=== PATIENT | female | born 1975 | race Caucasian/White ===

== ENCOUNTER 2021-01-11 07:02 | Outpatient (REF) | payer BC, SELFPAY ==
[2021-01-11 10:29] LABS: MANUAL DIFF FLAG NO
[2021-01-11 10:42] LABS: Basophils Percent Auto 0.6 % (0-2); Eosinophils Absolute Auto 0.2 X10*3/uL (0.0-0.4); Eosinophils Percent Auto 2.3 % (0-4); Hematocrit 41.1 % (37-47); Hemoglobin 13.9 g/dl (12.0-16.0); Imm Gran Abs Auto 0.01 X10*3/uL (0.00-0.03); Imm Gran Pct Auto 0.1 % (0.0-0.4); Lymphocytes Absolute Auto 1.9 X10*3/uL (1.2-4.9); Lymphocytes Percent Auto 26.4 % (20-40); Mean Corpuscular HGB Conc 33.8 g/dl (31.0-35.0); Mean Corpuscular Hemoglobin 32.6 pg (27.0-33.0); Mean Corpuscular Volume 96.3 fL (80-98); Monocytes Absolute Auto 0.5 X10*3/uL (0.1-1.2); Monocytes Percent Auto 7.5 % (2-11); Neutrophils Absolute Auto 4.5 X10*3/uL (2.0-8.3); Neutrophils Percent Auto 63.1 % (45-73); Platelet Count 307 X10*3/uL (160-400); Red Blood Count 4.27 X10*6/uL (4.20-5.50); Red Cell Distribution Width 11.5 % (11.0-16.0); White Blood Count 7.1 X10*3/uL (4.8-10.8)
[2021-01-11 11:06] LABS: Alanine Aminotransferase 9 U/L (0-31); Albumin Level 4.2 g/dL (3.5-5.0); Alkaline Phosphatase 58 U/L (39-117); Anion Gap 15 (12-20); Aspartate Amino Transferase 11 U/L (5-31); Bilirubin Total 0.8 mg/dL (0.0-1.0); Blood Urea Nitrogen 11 mg/dL (9-16); Calcium 9.1 mg/dL (8.4-10.2); Carbon Dioxide 22 mmol/L (22-29); Chloride 107 mmol/L (96-108); Cholesterol 200 mg/dL; Estimated Glomerular Filt Rate > 60; Glucose Fasting 92 mg/dL (60-99); HDL Cholesterol 46 mg/dL; LDL Cholesterol Calculated 131 mg/dl; Potassium 4.3 mmol/L (3.3-5.1); Sodium 140 mmol/L (135-145); Total Protein 7.1 g/dL (6.5-8.0); Triglycerides 118 mg/dL
[2021-01-11 11:27] LABS: TSH reflex Free T4 0.72 uIU/mL (0.32-4.0)
== END 2021-01-11 07:03 | disposition home or self-care (01) ==
LOC: HO.WFDLDS 07:02
PROVIDERS: PCP Internal Medicine; Visit Provider Internal Medicine
DX: Z00.00 Encounter for general adult medical examination without abnormal findings (principal)
CPT/HCPCS: 36415; 80053; 80061; 84443; 85025

== ENCOUNTER 2021-01-18 15:44 | Outpatient (REF) | payer BC, SELFPAY ==
--- NOTE | ~2021-01-18 | MM_ITS ---
EXAMINATION: MM SCREENING DIGITAL BREAST TOMOSYNTHESIS, BILATERAL CLINICAL INFORMATION: Screening. Asymptomatic. The lifetime risk of breast cancer based on the Tyrer-Cuzick Model is 11%. COMPARISON: Mammography: 01/26/2019 (baseline). TECHNIQUE: Digital breast tomosynthesis is performed in both the craniocaudal and mediolateral oblique views along with computer-aided detection (CAD). Synthesized 2D images are generated from the tomosynthesis. Additional left MLO view is provided. FINDINGS: There are scattered areas of fibroglandular density (ACR BI-RADS breast composition Category b). There are no significant masses, abnormal calcifications, or other abnormalities. Parenchymal pattern is similar to baseline exam. No significant changes. The axilla and skin contours are unremarkable. MM/MM tomosynthesis screening BI IMPRESSION: There are no significant changes from prior study. ASSESSMENT: BI-RADS 1: Negative RECOMMENDATION: Routine annual mammography screening. This patient's information was entered into a reminder system with a target due date for their next mammogram.
== END 2021-01-18 15:45 | disposition home or self-care (01) ==
LOC: HO.MAMMO 15:44
PROVIDERS: Visit Provider Internal Medicine
DX: Z12.31 Encounter for screening mammogram for malignant neoplasm of breast (principal)
CPT/HCPCS: 77063; 77067

== ENCOUNTER 2022-01-17 08:40 | Outpatient (REF) | payer BC, SELFPAY ==
[2022-01-23 01:06] LABS: HPV mRNA E6/E7 Not Detected (Not Detected)
== END 2022-01-17 08:41 | disposition home or self-care (01) ==
LOC: HO.LAB 08:40
PROVIDERS: Visit Provider Internal Medicine
DX: Z01.419 Encounter for gynecological examination (general) (routine) without abnormal findings (principal); Z11.51 Encounter for screening for human papillomavirus (HPV)
CPT/HCPCS: 87624; 88142

== ENCOUNTER 2022-01-17 08:47 | Outpatient (REF) | payer BC, SELFPAY ==
[2022-01-17 11:18] LABS: MANUAL DIFF FLAG NO
[2022-01-17 11:28] LABS: Basophils Percent Auto 0.5 % (0-2); Eosinophils Absolute Auto 0.1 X10*3/uL (0.0-0.4); Eosinophils Percent Auto 1.4 % (0-4); Hematocrit 42.9 % (37.0-47.0); Hemoglobin 14.4 g/dl (12.0-16.0); Imm Gran Abs Auto 0.03 X10*3/uL (0.00-0.03); Imm Gran Pct Auto 0.4 % (0.0-0.4); Lymphocytes Percent Auto 25.7 % (20-40); Mean Corpuscular HGB Conc 33.6 g/dl (31.0-35.0); Mean Corpuscular Hemoglobin 32.4 pg (27.0-33.0); Mean Corpuscular Volume 96.6 fL (80.0-98.0); Monocytes Absolute Auto 0.6 X10*3/uL (0.1-1.2); Monocytes Percent Auto 7.3 % (2-11); Neutrophils Absolute Auto 4.9 x10*3/uL (2.0-8.3); Neutrophils Percent Auto 64.7 % (45-73); Platelet Count 296 X10*3/uL (160-400); Red Blood Count 4.44 X10*6/uL (4.20-5.50); Red Cell Distribution Width 11.4 % (11.0-16.0); White Blood Count 7.6 X10*3/uL (4.8-10.8)
[2022-01-17 11:58] LABS: Alanine Aminotransferase 18 U/L (0-31); Albumin Level 4.7 g/dL (3.5-5.0); Alkaline Phosphatase 71 U/L (39-117); Anion Gap 12 (12-20); Aspartate Amino Transferase 19 U/L (5-31); Bilirubin Total 0.6 mg/dL (0.0-1.0); Blood Urea Nitrogen 9 mg/dL (9-16); Calcium 9.6 mg/dL (8.4-10.2); Carbon Dioxide 25 mmol/L (22-29); Chloride 106 mmol/L (96-108); Cholesterol 257 mg/dL; Estimated Glomerular Filt Rate > 60; Glucose Fasting 93 mg/dL (60-99); HDL Cholesterol 53 mg/dL; Iron 148 mcg/dL (30-160); LDL Cholesterol Calculated 182 mg/dl; Percent Iron Saturation 47 % (15-50); Potassium 4.2 mmol/L (3.3-5.1); Sodium 139 mmol/L (135-145); Total Iron Binding Capacity 314 mcg/dL (228-428); Total Protein 7.9 g/dL (6.5-8.0); Triglycerides 114 mg/dL; Unsaturated Iron Binding 166 ug/dL
[2022-01-17 12:06] LABS: TSH reflex Free T4 0.72 uIU/mL (0.32-4.0)
== END 2022-01-17 08:48 | disposition home or self-care (01) ==
LOC: HO.HMGCLDS 08:47
PROVIDERS: PCP Internal Medicine; Visit Provider Internal Medicine
DX: Z00.00 Encounter for general adult medical examination without abnormal findings (principal)
CPT/HCPCS: 36415; 80053; 80061; 83540; 84443; 85025

== ENCOUNTER 2022-01-23 08:34 | Outpatient (REF) | payer BC, SELFPAY ==
--- NOTE | ~2022-01-23 | MM_ITS ---
EXAMINATION: MM SCREENING DIGITAL BREAST TOMOSYNTHESIS, BILATERAL CLINICAL INFORMATION: Screening. Asymptomatic. The lifetime risk of breast cancer based on the Tyrer-Cuzick Model is 11.4%. COMPARISON: Mammography: January 18, 2021 and January 26, 2019 TECHNIQUE: Digital breast tomosynthesis is performed in both the craniocaudal and mediolateral oblique views along with computer-aided detection (CAD). Synthesized 2D images are generated from the tomosynthesis. FINDINGS: There are scattered areas of fibroglandular density (ACR BI-RADS breast composition Category b). There are no significant masses, abnormal calcifications, or other abnormalities. There is a small asymmetric density seen about the lateral aspect of the right breast but which appears been seen on study of January 26, 2019. MM/MM tomosynthesis screening BI IMPRESSION: There are no significant changes from prior study. ASSESSMENT: BI-RADS 1: Negative RECOMMENDATION: Routine annual mammography screening. This patient's information was entered into a reminder system with a target due date for their next mammogram.
== END 2022-01-23 08:35 | disposition home or self-care (01) ==
LOC: HO.MAMMO 08:34
PROVIDERS: Visit Provider Internal Medicine
DX: Z12.31 Encounter for screening mammogram for malignant neoplasm of breast (principal)
CPT/HCPCS: 77063; 77067

== ENCOUNTER 2022-05-30 07:19 | Outpatient (REF) | payer BC, SELFPAY ==
[2022-05-30 11:54] LABS: Cholesterol 195 mg/dL; HDL Cholesterol 51 mg/dL; LDL Cholesterol Calculated 130 mg/dl; Triglycerides 70 mg/dL
== END 2022-05-30 07:20 | disposition home or self-care (01) ==
LOC: HO.WFDLDS 07:19
PROVIDERS: Visit Provider Internal Medicine
DX: E78.5 Hyperlipidemia, unspecified (principal)
CPT/HCPCS: 36415; 80061

== ENCOUNTER 2023-01-17 07:38 | Outpatient (REF) | payer BC, SELFPAY ==
[2023-01-17 11:10] LABS: MANUAL DIFF FLAG NO
[2023-01-17 11:34] LABS: Basophils Absolute Auto 0.1 X10*3/uL (0.0-0.2); Basophils Percent Auto 0.8 % (0-2); Eosinophils Absolute Auto 0.1 X10*3/uL (0.0-0.4); Eosinophils Percent Auto 1.3 % (0-4); Hematocrit 41.6 % (37.0-47.0); Hemoglobin 13.7 g/dl (12.0-16.0); Imm Gran Abs Auto 0.02 X10*3/uL (0.00-0.03); Imm Gran Pct Auto 0.3 % (0.0-0.4); Lymphocytes Absolute Auto 1.9 X10*3/uL (1.2-4.9); Lymphocytes Percent Auto 30.5 % (20-40); Mean Corpuscular HGB Conc 32.9 g/dl (31.0-35.0); Mean Corpuscular Hemoglobin 32.3 pg (27.0-33.0); Mean Corpuscular Volume 98.1 fL (80.0-98.0); Mean Platelet Volume 9.9 fL (9.4-12.3); Monocytes Absolute Auto 0.5 X10*3/uL (0.1-1.2); Monocytes Percent Auto 7.6 % (2-11); Neutrophils Absolute Auto 3.6 x10*3/uL (2.0-8.3); Neutrophils Percent Auto 59.5 % (45-73); Platelet Count 305 X10*3/uL (160-400); Red Blood Count 4.24 X10*6/uL (4.20-5.50); Red Cell Distribution Width 11.3 % (11.0-16.0); White Blood Count 6.1 X10*3/uL (4.8-10.8)
[2023-01-17 12:19] LABS: Alanine Aminotransferase 20 U/L (0-31); Albumin Level 4.1 g/dL (3.5-5.0); Alkaline Phosphatase 52 U/L (39-117); Anion Gap 11 (12-20); Aspartate Amino Transferase 17 U/L (5-31); Bilirubin Total 0.6 mg/dL (0.0-1.0); Blood Urea Nitrogen 10 mg/dL (9-16); Calcium 9.3 mg/dL (8.4-10.2); Carbon Dioxide 25 mmol/L (22-29); Chloride 107 mmol/L (96-108); Cholesterol 227 mg/dL; Estimated Glomerular Filt Rate > 60; Glucose Fasting 92 mg/dL (60-99); HDL Cholesterol 54 mg/dL; LDL Cholesterol Calculated 151 mg/dl; Potassium 3.9 mmol/L (3.3-5.1); Sodium 139 mmol/L (135-145); TSH reflex Free T4 0.92 uIU/mL (0.32-4.0); Triglycerides 110 mg/dL
== END 2023-01-17 07:39 | disposition home or self-care (01) ==
LOC: HO.WFDLDS 07:38
PROVIDERS: Visit Provider Internal Medicine
DX: Z00.00 Encounter for general adult medical examination without abnormal findings (principal); E78.5 Hyperlipidemia, unspecified
CPT/HCPCS: 36415; 80053; 80061; 84443; 85025

== ENCOUNTER 2023-01-18 09:20 | Outpatient (REF) | payer BC, SELFPAY ==
[2023-01-18 13:27] LABS: Appearance Urine Clear; Color Urine Yellow; Glucose Urine UA Negative (Negative); Leukocyte Esterase Urine Negative (Negative); Nitrite Urine Negative (Negative); PH 7.5 (5.0-9.0); Specific Gravity - Urine 1.015 (1.005-1.025); Urine Blood Negative (Negative); Urine Ketones Negative (Negative); Urine Protein Negative (Neg-Trace)
[2023-01-18 13:31] LABS: Bacteria Urine None Seen (None Seen); Hyaline Casts Urine 0-2 /LPF (0-2); RBC Urine 0-2 /HPF (0-2); WBC Urine 0-5 /HPF (0-5)
== END 2023-01-18 09:21 | disposition home or self-care (01) ==
LOC: HO.HMGCLNP 09:20
PROVIDERS: PCP Internal Medicine; Visit Provider Internal Medicine
DX: Z00.00 Encounter for general adult medical examination without abnormal findings (principal); E78.5 Hyperlipidemia, unspecified
CPT/HCPCS: 81001

== ENCOUNTER 2023-01-18 10:24 | Outpatient (AMB) | payer BC, SELFPAY ==
[2023-01-18 10:40] VITALS: BP 114/70; PULSE 63; O2SAT 98; BMI 30.2
--- NOTE | 2023-01-18 10:40 | A.OFFPC_ITS ---
Vital Signs 01/18/23 10:40 Height 5 ft 2 in Weight 165 lb BMI 30.2 BP 114/70 Blood Pressure Location Lt brachial Position Sitting Pulse 63 Pulse Source Pulse Oximeter Pulse Oximetry (%) 98 Oxygen Delivery Method Room Air Intake Visit Reasons: PE Intake Note: Pt is here today for PE. Allergies No Known Allergies Allergy (Verified 01/18/23 10:42) Medication List - Last Reconciled 01/18/23 by Evelina Grant MD lorazepam 0.5 mg PO DAILY PRN trazodone 50 mg PO BEDTIME Tobacco use date assessed: 01/18/23 Dental Screening Dental Screen Date: 01/18/23 Did you have a dental visit in the last 12 months?: Yes Did you have a dental problem in the last 6 months where you did not have access to dental care?: No Was dental information given to patient?: Patient has dentist HPI PE HPI Details Pt presents for PE. Patient will have vaginal prolapse surgery in the fall. [facility], [facility] Medical History (Updated 01/18/23 @ 11:19 by Evelina Grant MD) Annual physical exam Insomnia Family History Father Hypertension Mother Hypertension Social History Housing: House Patient Tobacco Use Status: Never used Tobacco e-Cigarette/Vaping Use: Never Used Second Hand Smoke Exposure: No service: No Current occupational status: employed Cognitive needs: No Hearing needs: No Vision needs: Yes (contacts) Questionnaire Thrive Questionnaire Date Thrive assessed: 01/17/22 I am a: Patient What is your living situation today?: I have a steady place to live Within the past 12 months, did the food you bought not last and you didn't have the money to get more?: Never true Within the past 12 months, did you worry whether your food would run out before you got money to buy more?: Never true Please select the resources that you would like help with: None AUDIT C Alcohol Use Questionnaire (AUDIT-C) 1. How often do you have a drink containing alcohol?: 2-4 times a month 2. How many drinks containing alcohol do you have on a typical day when you are drinking?: 1 or 2 3. How often do you have six or more drinks on one occasion?: Never Total Score: 2 LORENZO-7 AMB Questionnaire LORENZO-7 Date LORENZO - 7 assessed: 01/17/22 Feeling nervous, anxious, or on edge: 1 = Several days Not being able to stop or control worryin = Not at all Worrying too much about different things: 1 = Several days Trouble relaxin = Not at all Being so restless that it is hard to sit still: 0 = Not at all Becoming easily annoyed or irritable: 0 = Not at all Feeling afraid as if something awful might happen: 0 = Not at all Total LORENZO-7 score (0-4 normal; 5-9 mild; 10-14 moderate; 15-21 severe): 2 Source: Developed by Drs. August Rodriguez, Marcia Vuong, Bebeto Ramos and colleagues, with an educational alex from [employer]. Review of Systems Const All systems reviewed & are unremarkable except as noted in HPI and below Reports no additional complaints Eyes Reports no additional complaints ENT Reports no additional complaints Card Reports no additional complaints Resp Reports no additional complaints GI Reports no additional complaints Reports no additional complaints Physical exam (Primary Care) Vital Signs: Last Vital Signs Pulse 63 01/18/23 10:40 BP 114/70 01/18/23 10:40 Pulse Ox 98 01/18/23 10:40 Oxygen Delivery Method Room Air 01/18/23 10:40 BMI result Body Mass Index 30.2 Tobacco/Smoking Status: Tobacco use Status Tobacco use date assessed 01/18/23 01/18/23 10:44 Patient Tobacco Use Status Never used Tobacco 01/18/23 10:44 e-Cigarette/Vaping Use Never Used 01/18/23 10:44 Thrive Assessment: Date of Thrive Assessment Date Thrive assessed 01/17/22 01/18/23 10:44 Const General: no acute distress HENMT Head: Yes normal to inspection Ears: hearing grossly normal bilaterally General nose exam: Normal external nose present Face and sinus: Yes normal facial exam Mouth: Normal oral and palatal mucosa present Throat: Yes posterior oropharynx normal Eyes General: appearance normal, both eyes and all related structures Neck Neck: Yes no lymphadenopathy and Yes supple Resp Effort & Inspection: normal respiratory effort Auscultation: clear to auscultation bilaterally Cardio Rhythm: regular rhythm Heart sounds: S1 normal heart sound present and S2 normal heart sound present GI Inspection: Yes normal to inspection Palpation (GI): Soft to palpation Percussion: Yes normal to percussion Auscultation: normal bowel sounds Assessment and Plan Assessment & Plan (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 in Apr Code(s): N81.9 - Female genital prolapse, unspecified (2) Hyperlipidemia: Code(s): E78.5 - Hyperlipidemia, unspecified Plan: Low-cholesterol diet discussed with the patient .she will have lipid profile checked in 8 months (3) Annual physical exam: Code(s): Z00.00 - Encounter for general adult medical examination without abnormal findings Plan: Well-balanced diet regular exercise discussed with the patient she is up-to-date with mammogram and will be referred for colonoscopy Orders: Orders Lipid Panel 8 Months E78.5 - Hyperlipidemia, unspecified Referrals Gastroenterology Referral Z00.00 - Encounter for general adult medical examination without abnormal findings Coding Level of Care Code Est Pt Prev Care 40-64y(25812) Diagnoses Vaginal vault prolapse N81.9 Hyperlipidemia E78.5 Annual physical exam Z00.00
== END 2023-01-18 11:33 | disposition home or self-care (01) ==
PROVIDERS: Visit Provider Internal Medicine
DX: N81.9 Female genital prolapse, unspecified (principal); E78.5 Hyperlipidemia, unspecified; Z00.00 Encounter for general adult medical examination without abnormal findings
CPT/HCPCS: 99396

== ENCOUNTER 2023-01-29 13:15 | Outpatient (REF) | payer BC, SELFPAY ==
--- NOTE | ~2023-01-29 | MM_ITS ---
EXAMINATION: MM SCREENING DIGITAL BREAST TOMOSYNTHESIS, BILATERAL CLINICAL INFORMATION: Screening. Asymptomatic. The lifetime risk of breast cancer based on the Tyrer-Cuzick Model is 11.2%. COMPARISON: Mammography: This study is compared with prior exams dating back to 2019. TECHNIQUE: Digital breast tomosynthesis is performed in both the craniocaudal and mediolateral oblique views along with computer-aided detection (CAD). Synthesized 2D images are generated from the tomosynthesis. FINDINGS: There are scattered areas of fibroglandular density (ACR BI-RADS breast composition Category b). There are no significant masses, abnormal calcifications, or other abnormalities. MM/MM tomosynthesis screening BI IMPRESSION: No mammographic evidence of malignancy. ASSESSMENT: BI-RADS BI-RADS 1 - Negative RECOMMENDATION: Routine annual mammography screening. 1 year F/U This examination should not preclude the clinical evaluation of a suspicious palpable abnormality. This patient's information was entered into a reminder system with a target due date for their next mammogram.
== END 2023-01-29 13:16 | disposition home or self-care (01) ==
LOC: HO.MAMMO 13:15
PROVIDERS: PCP Internal Medicine; Visit Provider Internal Medicine
DX: Z12.31 Encounter for screening mammogram for malignant neoplasm of breast (principal)
CPT/HCPCS: 77063; 77067

== ENCOUNTER → 2023-01-29 16:15 | Outpatient (BNV) | payer BC, SELFPAY | PROVIDERS: PCP Internal Medicine; Visit Provider Radiology Diagnostic Radiology | DX: Z12.31 Encounter for screening mammogram for malignant neoplasm of breast (principal) | CPT/HCPCS: 77063; 77067 ==

== ENCOUNTER 2023-02-19 08:39 | Outpatient (AMB) | payer BC, SELFPAY ==
--- NOTE | 2023-02-19 08:59 | MHC.OFFWIV ---
Intake Vital Signs 02/19/23 09:00 Height 5 ft 2 in Weight 168 lb BMI 30.7 BP 124/72 Blood Pressure Location Rt brachial Position Sitting Pulse 81 Pulse Source Pulse Oximeter Temp 98.1 F Temp Source Temporal Artery Scan Pulse Oximetry (%) 98 Oxygen Delivery Method Room Air Intake Visit Reasons: EP lower back and left side pain (lobby) Intake Note: Pt is here c/o lower back pain that radiates down her left side. Pt states right now it isn't extremely painful but it feels like a burning sensation. Patient Tobacco Use Status: Never used Tobacco Allergies No Known Allergies Allergy (Verified 02/19/23 09:02) Do you need a note to return to daycare/school/sports/work: No HPI EP lower back and left side pain (lobby) HPI Details 47-year-old female patient presents today with left-sided lower back pain with radiation posterior left leg. This started a week and ago. She denies any trauma inciting event. She reports that at the time pain started, she felt a shooting pain that extended down to her foot. Since then, pain has only radiated down to her posterior left knee. She has been using Aleve and. She has also been doing some home exercises for SI joint pain/ sciatica pain. No history of back trauma or surgery. Denies any leg weakness saddle anesthesia, or bowel/bladder dysfunction. [facility] Medical History Annual physical exam Insomnia Family History Father Hypertension Mother Hypertension Social History Housing: House Patient Tobacco Use Status: Never used Tobacco e-Cigarette/Vaping Use: Never Used Second Hand Smoke Exposure: No service: No Current occupational status: employed Cognitive needs: No Hearing needs: No Vision needs: Yes (contacts) Review of Systems Const All systems reviewed & are unremarkable except as noted in HPI and below Physical Exam Vital Signs: Last Vital Signs Temp 98.1 F 02/19/23 09:00 Pulse 81 02/19/23 09:00 BP 124/72 02/19/23 09:00 Pulse Ox 98 02/19/23 09:00 Oxygen Delivery Method Room Air 02/19/23 09:00 BMI result Body Mass Index 30.7 Const General: cooperative, healthy appearing, comfortable and no acute distress Resp Effort & Inspection: normal respiratory effort and able to speak in complete sentences Back/Spine/Pelvis Thoracic/Lumbar Spine: thoracic and lumbar spine normal to inspection, straight leg raise negative bilaterally, pain with thoraco-lumbar ROM (flexion/extension, mild pressure left lower back) and paraspinal muscle tenderness on the left in the lower lumbar Sacroiliac joints: on the left tender to palpation Skin General skin exam: no rashes or lesions noted Neuro General: gait normal, Normal light touch and pain sensation and deep tendon reflexes 2+ bilaterally Extrem General: Yes capillary refill normal and Yes no clubbing, cyanosis or edema Psych Appearance: grossly normal Mental Status: mental status grossly normal Speech and movement: Normal speech and movement present Assessment & Plan Assessment & Plan (1) Low back pain radiating to left lower extremity: Code(s): M54.50 - Low back pain, unspecified; M79.605 - Pain in left leg Plan: Patient presents with left-sided lower back pain with occasional burning radiation down left leg. This could either represent a left lumbar radiculopathy, perhaps L5/S1, verses left sacroiliac joint dysfunction, as she does have some tenderness to palpation over left SI joint. She has been doing some exercises at home, which I encouraged she continue to do if they are helpful. I will obtain an x-ray of her lumbar spine today. She is going to look into chiropractic treatment. We also discussed possibility of course of physical therapy, which she will request of her PCP if conservative measures do not help. I am going to trial her on a short course of Meloxicam to see if this provides her some benefit. We reviewed indications, use, possible side effects. She will return to the clinic or PCP as needed if pain does not improve of if it worsens. Orders: Orders XR lumbar spine 2-3V Today M54.50 - Low back pain, unspecified, M79.605 - Pain in left leg Medications: New meloxicam 7.5 mg PO DAILY 7 tabs 0RF 1 week M54.50 - Low back pain, unspecified, M79.605 - Pain in left leg Coding Level of Care Code Est Pt Level 3 (06034) Diagnoses Low back pain radiating to left lower extremity M54.50; M79.605
[2023-02-19 09:00] VITALS: BP 124/72; PULSE 81; TEMP 36.7; O2SAT 98; BMI 30.7
== END 2023-02-19 09:36 | disposition home or self-care (01) ==
PROVIDERS: PCP Internal Medicine; Visit Provider Nurse Practitioner Family
DX: M54.50 Low back pain, unspecified (principal); M79.605 Pain in left leg
CPT/HCPCS: 99213

== ENCOUNTER 2023-02-19 09:36 | Outpatient (REF) | payer BC, SELFPAY ==
--- NOTE | ~2023-02-19 | XR_ITS ---
EXAMINATION: XR LUMBOSACRAL SPINE CLINICAL INFORMATION: Low back pain COMPARISON: None available. TECHNIQUE: Three views of the lumbosacral spine. FINDINGS: No acute lumbar compression fracture. Disc spaces appear to be maintained. There is lower facet arthrosis. Sacrum grossly intact. Incidental note of mild degenerative changes at the SI joints. XR/XR lumbar spine 2-3V IMPRESSION: No acute compression fracture or loss of disc space. Lower facet arthrosis.
== END 2023-02-19 09:37 | disposition home or self-care (01) ==
LOC: HO.HMGCX 09:36
PROVIDERS: PCP Internal Medicine; Visit Provider Nurse Practitioner Family
DX: M54.50 Low back pain, unspecified (principal); M79.605 Pain in left leg
CPT/HCPCS: 72100

== ENCOUNTER 2023-04-03 15:13 | Outpatient (AMB) | payer BC, SELFPAY ==
--- NOTE | 2023-04-03 15:34 | MHC.OFFVIS ---
Intake Vital Signs 04/03/23 15:35 Height 5 ft 2 in Weight 163 lb BMI 29.8 BP 120/72 Blood Pressure Location Lt brachial Position Sitting Pulse 72 Intake Visit Reasons: colonoscopy screening Intake Note: Patient new consult for 1st pre Colonoscopy screening. Patient ;denies any GI issues. Rn Neurosurgical Required: No Accompanied by: Self / Same As Patient Allergies No Known Allergies Allergy (Verified 04/03/23 15:33) HPI colonoscopy screening HPI Details 47 year old? female here today for pre colonoscopy screening.? Patient was sent to us by her PCP.? This is her first colonoscopy screening.? Patient denies any gastrointestinal symptoms in the past or at present.? Denies any personal or family history of gastrointestinal disease, colon polyps, or cancer.? Denies history of difficulty with sedation or anesthesia in the past. However patient reports that when she was 13 she had tonsillectomy and right after the procedure patient vomited unsure if it was due to anesthesia or from actual surgery.? Negative for history of sleep apnea.? Denies any history of cardiac, renal, pulmonary, or hepatic disease.?? No history of infectious? diseases like hepatitis A, B, C, HIV or tuberculosis.? Patient is not on any anticoagulation therapy. [facility] Medical History Annual physical exam Insomnia Family History Father Hypertension Mother Hypertension Social History Housing: House Patient Tobacco Use Status: Never used Tobacco e-Cigarette/Vaping Use: Never Used Second Hand Smoke Exposure: No service: No Current occupational status: employed Cognitive needs: No Hearing needs: No Vision needs: Yes (contacts) Review of Systems Const Denies weight gain and Denies weight loss ENT Reports no additional complaints, Denies dysphagia and Denies odynophagia Card Reports no additional complaints Resp Reports no additional complaints GI Denies abdominal pain, Denies belching, Denies melena, Denies bloating, Denies change in bowel habits, Denies dysphagia, Denies excessive flatus, Denies dyspepsia, Denies heartburn, Denies diarrhea, Denies loose stools, Denies nausea, Denies odynophagia and Denies vomiting Musc Reports no additional complaints Neuro Reports no additional complaints Psych Reports no additional complaints Endo Reports no additional complaints Physical Exam Vital Signs: Last Vital Signs Pulse 72 04/03/23 15:35 BP 120/72 04/03/23 15:35 BMI result Body Mass Index 29.8 Const General: healthy appearing, no acute distress and well developed Nutritional Appearance: obese Orientation/consciousness: patient oriented x3 HEENT Head: Yes normal to inspection, Yes normocephalic and Yes atraumatic Face and sinus: Yes normal facial exam Mouth: Normal oral and palatal mucosa present Throat: Yes posterior oropharynx normal, Yes tonsils normal and Yes uvula midline Eyes General: appearance normal, both eyes and all related structures Neck Neck: Yes normal visual inspection, Yes full ROM and Yes trachea midline Thyroid: Thyroid normal Resp Effort & Inspection: normal respiratory effort, able to speak in complete sentences, no tracheal deviation and symmetric chest movement Auscultation: clear to auscultation bilaterally Cardio Rate: regular rate Heart sounds: S1 normal heart sound present and S2 normal heart sound present GI Inspection: Yes normal to inspection, No distended and Yes obesity Palpation (GI): Soft to palpation, not firm, nontender and No hepatosplenomegaly present Auscultation: normal bowel sounds General: Yes no CVA tenderness Back/Spine/Pelvis Back: no CVA tenderness Skin General skin exam: elasticity normal, turgor normal and dry skin Neuro General: patient oriented x3 Psych Appearance: grossly normal Mental Status: mental status grossly normal Speech and movement: Normal speech and movement present Assessment & Plan Assessment & Plan (1) Screen for colon cancer: Code(s): Z12.11 - Encounter for screening for malignant neoplasm of colon Plan: Patient denies any GI, cardiac or respiratory symptoms.?? Denies any history of sleep apnea.? No history infectious diseases in the past or present.? Not on any anticoagulation therapy.? No family or personal history of colon cancer or polyps.? Patient denies melena, hematochezia, unintentional weight loss or ribbon like stools.? Discussed at length the pre-procedure,? prep, diet & medications as well as what to expect prior, during and after the procedure.?? Stressed the importance of good bowel prep. ?Recommended the use of Vaseline or Calmoseptine OTC & baby wipes with bowel movements to promote comfort.? ?Patient verbalizes understanding and agrees to plan of care.? She was given the opportunity to ask questions and all questions answered.? We will see her after the procedure.? Medications: New bisacodyl (Dulcolax (bisacodyl)) Start taking 2 tablet every night 7 days before the procedure and 1 day before procedure take 2 tablets at noon time followed by MiraLax prep 10 mg (2 x 5 mg) PO BEDTIME 14 tabs 0RF Z12.11 - Encounter for screening for malignant neoplasm of colon polyethylene glycol 3350 (Miralax) As directed by gastroenterology department at [facility] [place] 238 grams PO ONCE 238 grams 0RF Z12.11 - Encounter for screening for malignant neoplasm of colon Coding Level of Care Code New Pt Level 3 (62987) Diagnoses Screen for colon cancer Z12.11 Time Spent (min) 40 Comment 30 minutes spent with patient and additional 10 minutes spent reviewing her records
[2023-04-03 15:35] VITALS: BP 120/72; PULSE 72; BMI 29.8
== END 2023-04-03 16:08 | disposition home or self-care (01) ==
PROVIDERS: PCP Internal Medicine; Visit Provider Nurse Practitioner Family
DX: Z01.818 Encounter for other preprocedural examination (principal); Z12.11 Encounter for screening for malignant neoplasm of colon
CPT/HCPCS: S0285

== ENCOUNTER → 2023-04-03 15:13 | Outpatient (BNVA) | payer BC, SELFPAY | PROVIDERS: PCP Internal Medicine; Visit Provider Nurse Practitioner Family ==

== ENCOUNTER 2024-01-15 07:13 | Day surgery (SDC) | payer BC, SELFPAY ==
--- NOTE | 2024-01-13 13:52 | HO.ANESPROP2 ---
Documented by User: Celina Santiago NP 01/13/24 13:52 HPI - Anesthesia Eval Consult details Narrative: 48yo F for Colonoscopy FORMERLY [facility], [facility] Active Problems Active Problems: All Active Problems Bilateral otitis media with effusion (Acute) Hyperlipidemia (Acute) Vaginal vault prolapse (Acute) Plantar fasciitis, left (Acute) Annual physical exam (Acute) Hordeolum (Acute) Past Medical History Medical History Insomnia Annual physical exam Family History Family History Father Hypertension Mother Hypertension Surgical History Surgical History (Updated 01/15/24 @ 07:37 by Shannan Garnett RN) H/O: hysterectomy Social History Social History Housing: House Patient Tobacco Use Status: Never used Tobacco e-Cigarette/Vaping Use: Never Used Second Hand Smoke Exposure: No Advance Directives: No Advance Directives Information Provided: Yes service: No Current occupational status: employed Cognitive needs: No Hearing needs: No Vision needs: Yes (contacts) Meds Allergies Allergy/AdvReac Type Severity Reaction Status Date / Time No Known Allergies Allergy Verified 04/03/23 15:33 Assessment and Plan Assessment Anesthesia Assessment: Chart Reviewed Documented by User: Eleuterio Lerner MD 01/15/24 07:38 FORMERLY [facility], [facility] Past Medical History Medical History Insomnia Annual physical exam Family History Family History Father Hypertension Mother Hypertension Family history of problems with anesthesia: No Surgical History Surgical History (Updated 01/15/24 @ 07:37 by Shannan Garnett RN) H/O: hysterectomy History of Problems with Anesthesia: No Social History Social History Housing: House Patient Tobacco Use Status: Never used Tobacco e-Cigarette/Vaping Use: Never Used Second Hand Smoke Exposure: No Advance Directives: No Advance Directives Information Provided: Yes service: No Current occupational status: employed Cognitive needs: No Hearing needs: No Vision needs: Yes (contacts) Meds Allergies Allergy/AdvReac Type Severity Reaction Status Date / Time No Known Allergies Allergy Verified 04/03/23 15:33 Exam Airway Mallampati Class: II TM Dist: >3cm Neck ROM: Full Other: lower retainer Assessment and Plan Assessment Anesthesia Assessment: Anesthesia Plan Discussed Final Anesthetic Review Family History of Problems with Anesthesia: No History of Problems with Anesthesia: No NPO: Yes ASA Class: II Final Preanesthetic Review: No Changes in Pt Med Stat, Meds/Allgs Chart Reviewed, Consent Obtained/Reviewed and Anes Risks/Benef Reviewed Patient Risk: Low Procedure Risk: Low Anesthetic Plan Anesthetic Plan: TIVA Disposition: Standard PACU
--- NOTE | 2024-01-15 07:07 | MHC.SHP ---
Pre-Procedural Eval Section A - 24 Hr Update-Section A only Date of Service: 01/15/24 Section B - Complete if H&P > 30 days Chief Complaint: Encounter for screening for malignant neoplasm of Relevant Family History (Specify if Yes): No Relevant Social History: None Present Medications: see Short Stay Collaborative assessment Medical History: Significant History (hyperlipidemia ) History of Previous Operations: Relevant previous surgery/procedure and date(s) (H/O: hysterectomy) Allergies: Allergies Allergy/AdvReac Type Severity Reaction Status Date / Time No Known Allergies Allergy Verified 04/03/23 15:33 Review of Systems Sugical H&P ROS: Negative: Constitution, Cardiovascular, Respiratory, Neurological, Psychiatric, Hem-Onc, Allergic/Immunologic, Gastrointestinal, Genitourinary, Musculoskeletal, Integumentary, Endocrine and Eyes/Ears/Nose/Throat Exam Surgical H&P Exam: Normal: HEENT, Normal: Heart, Normal: Lungs, Normal: Extremities, Normal: Abdomen, Normal: Skin and Normal: Neurological Plan Diagnosis/Plan: Unchanged I have reviewed the history and physical and performed a pertinent physical examination on my patient. No changes have occurred unless specified. Time Spent With Patient Time: Total time managing care of this patient today ____ minutes.
[2024-01-15 07:45] VITALS: BMI 27.9
[2024-01-15 07:49] VITALS: BP 107/81; PULSE 76; RESP 16; TEMP 37.5; O2SAT 97
[2024-01-15] MEDS: Lactated Ringers 1,000 ML 100 ML IVCONT (08:03)
--- NOTE | 2024-01-15 08:21 | P.OPN-COLO_ITS ---
Colonoscopy Operative Note Operative Note Date of Service: 01/15/24 Narrative: Operative Information Procedure Description: Colonoscopy Indication: screening Anesthesia: MAC COLONOSCOPY Instrument: Olympus variable stiffness pediatric scope 190L Colonoscopy Monitoring: Vital signs and clinical assessment, continuous EKG monitoring, Pulse oximetry, Carbon Dioxide monitoring and blood pressure monitoring were done throughout the procedure. Colon withdrawal time was 9 minutes. Procedure: The patient was placed in the left lateral decubitis position and pre-procedure medications were administered. After a digital rectal examination of the ano-rectum, the video colonoscope was inserted into the rectum and advanced through the colon to the cecum/TI. The colonoscope was slowly withdrawn in a retrograde panoramic fashion and the colon mucosa was carefully examined including a retroflexed view of the rectum. Findings and interventions are described below. Procedure Difficulty: easy Findings: Terminal Ileum-normal Cecum:normal Right sided retroflexion- normal Ascending Colon: normal Transverse Colon -normal Descending Colon:normal Sigmoid Colon: mild diverticulosis Rectum: Retroflexion with small internal hemorrhoids seen, grade I, 10 mm sessile polyp removed with cold snare, some residual tissue remained and removed with cold forceps Anorectum - normal Intervention: cold snare and cold forceps Colon preparation: [place] Bowel Preparation Scale Right colon; 2 Transverse colon: 3 Left colon; 3 (0 = Unprepared colon segment with mucosa not seen due to solid stool that cannot be cleared. 1 = Portion of mucosa of the colon segment seen, but other areas of the colon segment not well seen due to staining, residual stool and/or opaque liquid. 2 = Minor amount of residual staining, small fragments of stool and/or opaque liquid, but mucosa of colon segment seen well. 3 = Entire mucosa of colon segment seen well with no residual staining, small fragments of stool or opaque liquid) Impression and Post Procedure Diagnosis: diverticulosis colon polyp internal hemorrhoids Plan: High fiber diet leaflet Avoid straining at stool, epsom salts and sitz bath, anusol supps or cream Repeat Colonoscopy in 5-6 years or earlier if clinically indicated Above findings were reviewed with the patient and relevant handouts were provided if indicated.
[2024-01-15 08:50] VITALS: BP 89/49; PULSE 73; RESP 16; TEMP 36.1; O2SAT 97
[2024-01-15 09:05] VITALS: BP 101/59; PULSE 65; RESP 16; O2SAT 99
[2024-01-15 09:13] VITALS: BP 106/65; PULSE 64; RESP 16; TEMP 36.2; O2SAT 98
== END 2024-01-15 09:36 | disposition home or self-care (01) ==
PROVIDERS: PCP Internal Medicine; Visit Provider Internal Medicine Gastroenterology
PROC: 0DJD8ZZ Inspection of Lower Intestinal Tract, Via Natural or Artificial Opening Endoscopic (ICD-10-PCS; CPT 45378; principal; 2024-01-15 08:30)
DX: Z12.11 Encounter for screening for malignant neoplasm of colon (principal); D12.8 Benign neoplasm of rectum; K57.30 Diverticulosis of large intestine without perforation or abscess without bleeding; K64.0 First degree hemorrhoids; E78.5 Hyperlipidemia, unspecified
CPT/HCPCS: 45385; 45380; 88305; J2704

== ENCOUNTER → 2024-01-15 07:13 | Outpatient (BNV) | payer BC, SELFPAY | PROVIDERS: PCP Internal Medicine; Visit Provider Internal Medicine Gastroenterology | DX: Z12.11 Encounter for screening for malignant neoplasm of colon (principal); D12.8 Benign neoplasm of rectum; K57.30 Diverticulosis of large intestine without perforation or abscess without bleeding; K64.0 First degree hemorrhoids | CPT/HCPCS: 45385 ==

== ENCOUNTER 2024-01-17 07:46 | Outpatient (REF) | payer BC, SELFPAY ==
[2024-01-17 11:32] LABS: MANUAL DIFF FLAG NO
[2024-01-17 11:37] LABS: Basophils Absolute Auto 0.1 X10*3/uL (0.0-0.2); Basophils Percent Auto 0.9 % (0-2); Eosinophils Absolute Auto 0.1 X10*3/uL (0.0-0.4); Eosinophils Percent Auto 1.4 % (0-4); Hematocrit 38.6 % (37.0-47.0); Hemoglobin 13.3 g/dl (12.0-16.0); Imm Gran Abs Auto 0.02 X10*3/uL (0.00-0.03); Imm Gran Pct Auto 0.3 % (0.0-0.4); Lymphocytes Absolute Auto 2.2 X10*3/uL (1.2-4.9); Lymphocytes Percent Auto 33.9 % (20-40); Mean Corpuscular HGB Conc 34.5 g/dl (31.0-35.0); Mean Corpuscular Hemoglobin 32.8 pg (27.0-33.0); Mean Corpuscular Volume 95.3 fL (80.0-98.0); Mean Platelet Volume 9.8 fL (9.4-12.3); Monocytes Absolute Auto 0.5 X10*3/uL (0.1-1.2); Monocytes Percent Auto 7.2 % (2-11); Neutrophils Absolute Auto 3.6 x10*3/uL (2.0-8.3); Neutrophils Percent Auto 56.3 % (45-73); Platelet Count 289 X10*3/uL (160-400); Red Blood Count 4.05 X10*6/uL (4.20-5.50); Red Cell Distribution Width 11.7 % (11.0-16.0); White Blood Count 6.4 X10*3/uL (4.8-10.8)
[2024-01-17 12:34] LABS: Alanine Aminotransferase 9 U/L (0-31); Albumin Level 4.1 g/dL (3.5-5.0); Alkaline Phosphatase 50 U/L (39-117); Anion Gap 10 (12-20); Aspartate Amino Transferase 13 U/L (5-31); Bilirubin Total 0.7 mg/dL (0.0-1.0); Blood Urea Nitrogen 6 mg/dL (9-16); Carbon Dioxide 26 mmol/L (22-29); Chloride 106 mmol/L (96-108); Cholesterol 208 mg/dL (<200); Estimated Glomerular Filt Rate > 60; Glucose Fasting 86 mg/dL (60-99); HDL Cholesterol 46 mg/dL (>40); LDL Cholesterol Calculated 146 mg/dL (<100); Potassium 3.7 mmol/L (3.3-5.1); Sodium 138 mmol/L (135-145); Total Protein 6.9 g/dL (6.5-8.0); Triglycerides 82 mg/dL (<150)
[2024-01-17 12:39] LABS: TSH reflex Free T4 0.59 uIU/mL (0.32-4.0); Vitamin D 25-OH Total 43.8 ng/mL (>30)
== END 2024-01-17 07:47 | disposition home or self-care (01) ==
LOC: HO.WFDLDS 07:46
PROVIDERS: Visit Provider Internal Medicine
DX: Z00.00 Encounter for general adult medical examination without abnormal findings (principal); E78.5 Hyperlipidemia, unspecified
CPT/HCPCS: 36415; 80053; 80061; 82306; 84443; 85025

== ENCOUNTER 2024-01-22 08:03 | Outpatient (AMB) | payer BC, SELFPAY ==
--- NOTE | 2024-01-22 08:11 | A.OFFPC_ITS ---
Vital Signs 01/22/24 08:12 Height 5 ft 2.5 in Weight 156 lb BMI 28.1 BP 118/78 Blood Pressure Location Rt brachial Position Sitting Pulse 70 Pulse Source Pulse Oximeter Pulse Oximetry (%) 98 Oxygen Delivery Method Room Air Intake Visit Reasons: Annual PE Intake Note: Pt is here today for PE. Allergies No Known Allergies Allergy (Verified 01/22/24 08:13) Medication List - Last Reconciled 01/22/24 by Evelina Grant MD trazodone 50 mg PO BEDTIME Tobacco use date assessed: 01/22/24 Dental Screening Dental Screen Date: 01/22/24 Did you have a dental visit in the last 12 months?: Yes Did you have a dental problem in the last 6 months where you did not have access to dental care?: No Was dental information given to patient?: Patient has dentist HPI Annual PE HPI Details Pt present for PE. PFSH Medical History (Updated 01/22/24 @ 08:37 by Evelina Grant MD) Insomnia Annual physical exam Surgical History (Updated 01/22/24 @ 08:49 by Evelina Grant MD) History of tonsillectomy and adenoidectomy H/O: hysterectomy Family History Father Hypertension Mother Hypertension Social History Housing: House Patient Tobacco Use Status: Never used Tobacco e-Cigarette/Vaping Use: Never Used Second Hand Smoke Exposure: No service: No Current occupational status: employed Cognitive needs: No Hearing needs: No Vision needs: Yes (contacts) Questionnaire PHQ-9 Over the last 2 weeks, how often have you been bothered by any of the following problems? 1. Little interest or pleasure in doing things: not at all 2. Feeling down, depressed, or hopeless: not at all 3. Trouble falling or staying asleep, or sleeping too much: not at all 4. Feeling tired or having little energy: not at all 5. Poor appetite or overeating: not at all 6. Feeling bad about yourself - or that you are a failure or have let yourself or your family down: not at all 7. Trouble concentrating on things, such as reading the newspaper or watching television: not at all 8. Moving or speaking so slowly that other people could have noticed. Or the opposite - being so fidgety or restless that you have been moving around a lot more than usual: not at all 9. Thoughts that you would be better off or of hurting yourself in some way: not at all Total score: 0 Depression Screening Interpretation: Negative Depression Screening Done: Yes Source: Developed by Drs. August Rodriguez, Marcia Vuong, Bebeto Ramos and colleagues, with an educational alex from [employer] ([employer] Thrive Questionnaire Date Thrive assessed: 01/22/24 I am a: Patient What is your living situation today?: I have a steady place to live Within the past 12 months, did the food you bought not last and you didn't have the money to get more?: Never true Within the past 12 months, did you worry whether your food would run out before you got money to buy more?: Never true Do you have trouble paying for medicines?: No Do you have trouble getting transportation to medical appointments?: No Do you have trouble paying your heating and electricity bill?: No Do you have trouble taking care of your child, family member or friend?: No Do you have trouble with day-to-day activities such as bathing, preparing meals, shopping, managing finances, etc.?: No Are you currently unemployed and looking for a job?: No Are you interested in more education?: No Please select the resources that you would like help with: Housing/Assisted Currently or been in a relationship where the following occur: No concerns reported THRIVE Score: 0 AUDIT C Alcohol Use Questionnaire (AUDIT-C) 1. How often do you have a drink containing alcohol?: Monthly or less 2. How many drinks containing alcohol do you have on a typical day when you are drinking?: 1 or 2 3. How often do you have six or more drinks on one occasion?: Never Total Score: 1 LORENZO-7 AMB Questionnaire LORENZO-7 Date LORENZO - 7 assessed: 01/22/24 Feeling nervous, anxious, or on edge: 0 = Not at all Not being able to stop or control worryin = Not at all Worrying too much about different things: 0 = Not at all Trouble relaxin = Not at all Being so restless that it is hard to sit still: 0 = Not at all Becoming easily annoyed or irritable: 0 = Not at all Feeling afraid as if something awful might happen: 0 = Not at all Total LORENZO-7 score (0-4 normal; 5-9 mild; 10-14 moderate; 15-21 severe): 0 Source: Developed by Drs. August Rodriguez, Marcia Vuong, Bebeto Ramos and colleagues, with an educational alex from [employer] ([employer]). Review of Systems Const All systems reviewed & are unremarkable except as noted in HPI and below Reports no additional complaints Eyes Reports no additional complaints ENT Reports no additional complaints Card Reports no additional complaints Resp Reports no additional complaints GI Reports no additional complaints Reports no additional complaints Physical exam (Primary Care) Vital Signs: Last Vital Signs Pulse 70 01/22/24 08:12 BP 118/78 01/22/24 08:12 Pulse Ox 98 01/22/24 08:12 Oxygen Delivery Method Room Air 01/22/24 08:12 BMI result Body Mass Index 28.1 Tobacco/Smoking Status: Tobacco use Status Tobacco use date assessed 01/22/24 01/22/24 08:15 Patient Tobacco Use Status Never used Tobacco 01/22/24 08:11 e-Cigarette/Vaping Use Never Used 01/22/24 08:11 PHQ-9: PHQ-9 Score PHQ-9: Total score 0 01/22/24 08:15 Depression Screening Interpretation: Negative Thrive Assessment: Date of Thrive Assessment Date Thrive assessed 01/22/24 01/22/24 08:15 Currently or been in a relationship where the following occur: No concerns reported Const General: no acute distress HENMT Head: Yes normal to inspection Ears: hearing grossly normal bilaterally Face and sinus: Yes normal facial exam Mouth: Normal oral and palatal mucosa present Throat: Yes posterior oropharynx normal Eyes General: appearance normal, both eyes and all related structures Neck Neck: Yes supple Resp Effort & Inspection: normal respiratory effort Auscultation: clear to auscultation bilaterally Cardio Rhythm: regular rhythm Heart sounds: S1 normal heart sound present and S2 normal heart sound present GI Inspection: Yes normal to inspection Palpation (GI): Soft to palpation Percussion: Yes normal to percussion Auscultation: normal bowel sounds Assessment and Plan Assessment & Plan (1) Hyperlipidemia: Code(s): E78.5 - Hyperlipidemia, unspecified Plan: Low-cholesterol diet regular physical activity discussed with the patient. 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 she is up-to-date with mammogram colonoscopy. (4) Hx of colonoscopy: Comment: 01/2024 1cm polyp TA, recheck 5yrs Code(s): Z98.890 - Other specified postprocedural states Orders: Orders Comprehensive [place]. Panel Fast 1 Year E78.5 - Hyperlipidemia, unspecified, Z00.00 - Encounter for general adult medical examination without abnormal findings Complete Blood Count Auto Diff 1 Year E78.5 - Hyperlipidemia, unspecified, Z00.00 - Encounter for general adult medical examination without abnormal findings Lipid Panel 1 Year E78.5 - Hyperlipidemia, unspecified, Z00.00 - Encounter for general adult medical examination without abnormal findings TSH reflex Free T4 1 Year E78.5 - Hyperlipidemia, unspecified, Z00.00 - Encounter for general adult medical examination without abnormal findings Vitamin D 25-OH Total 1 Year E78.5 - Hyperlipidemia, unspecified, Z00.00 - Encounter for general adult medical examination without abnormal findings UA w Microscopic 1 Year E78.5 - Hyperlipidemia, unspecified, Z00.00 - Encounter for general adult medical examination without abnormal findings Coding Level of Care Code Est Pt Prev Care 40-64y(38104) Diagnoses Hyperlipidemia E78.5 Vaginal vault prolapse N81.9 Annual physical exam Z00.00 Hx of colonoscopy Z98.890
[2024-01-22 08:12] VITALS: BP 118/78; PULSE 70; O2SAT 98; BMI 28.1
== END 2024-01-22 08:33 | disposition home or self-care (01) ==
PROVIDERS: PCP Internal Medicine; Visit Provider Internal Medicine
DX: E78.5 Hyperlipidemia, unspecified (principal); N81.9 Female genital prolapse, unspecified; Z00.00 Encounter for general adult medical examination without abnormal findings; Z98.890 Other specified postprocedural states
CPT/HCPCS: 99396

== ENCOUNTER 2024-01-29 08:06 | Outpatient (AMB) | payer BC, SELFPAY ==
--- NOTE | 2024-01-29 08:10 | MHC.OFFVIS ---
Vital Signs 01/29/24 08:14 Height 5 ft 2.5 in Weight 155 lb 10.342 oz BMI 28.0 BP 112/64 Blood Pressure Location Lt brachial Position Sitting Pulse 62 Pulse Source Pulse Oximeter Pulse Oximetry (%) 98 Oxygen Delivery Method Room Air Intake Visit Reasons: S/P [place] screening; Dr. Casper Intake Note: Xochilt presents in office today for a scheduled post op FUV. CC; Pt reports that they have remained stable in the post op phase and deny any new sx or concerns. Phlebotomy Support Tech Required: No Allergies No Known Allergies Allergy (Verified 01/29/24 08:11) HPI HPI S/P [place] screening; Dr. Casper: Details: LAST VISIT Screen for colon cancer Patient denies any GI, cardiac or respiratory symptoms.?? Denies any history of sleep apnea.? No history infectious diseases in the past or present.? Not on any anticoagulation therapy.? No family or personal history of colon cancer or polyps.? Patient denies melena, hematochezia, unintentional weight loss or ribbon like stools.? Discussed at length the pre-procedure,? prep, diet & medications as well as what to expect prior, during and after the procedure.?? Stressed the importance of good bowel prep. ?Recommended the use of Vaseline or Calmoseptine OTC & baby wipes with bowel movements to promote comfort.? ?Patient verbalizes understanding and agrees to plan of care.? She was given the opportunity to ask questions and all questions answered.? We will see her after the procedure.? Plan Medications New bisacodyl (Dulcolax (bisacodyl)) Start taking 2 tablet every night 7 days before the procedure and 1 day before procedure take 2 tablets at noon time followed by MiraLax prep 10 mg (2 x 5 mg) PO BEDTIME 14 tabs 0RF Z12.11 polyethylene glycol 3350 (Miralax) As directed by gastroenterology department at [facility] 238 grams PO ONCE 238 grams 0RF Z12.11 COLONOSCOPY Findings: Terminal Ileum-normal Cecum:normal Right sided retroflexion- normal Ascending Colon: normal Transverse Colon -normal Descending Colon:normal Sigmoid Colon: mild diverticulosis Rectum: Retroflexion with small internal hemorrhoids seen, grade I, 10 mm sessile polyp removed with cold snare, some residual tissue remained and removed with cold forceps Anorectum - normal Intervention: cold snare and cold forceps Colon preparation: [place] Bowel Preparation Scale Right colon; 2 Transverse colon: 3 Left colon; 3 (0 = Unprepared colon segment with mucosa not seen due to solid stool that cannot be cleared. 1 = Portion of mucosa of the colon segment seen, but other areas of the colon segment not well seen due to staining, residual stool and/or opaque liquid. 2 = Minor amount of residual staining, small fragments of stool and/or opaque liquid, but mucosa of colon segment seen well. 3 = Entire mucosa of colon segment seen well with no residual staining, small fragments of stool or opaque liquid) Impression and Post Procedure Diagnosis: diverticulosis colon polyp internal hemorrhoids Plan: High fiber diet leaflet Avoid straining at stool, epsom salts and sitz bath, anusol supps or cream Repeat Colonoscopy in 5-6 years or earlier if clinically indicated PATHOLOGY RESULTS Diagnosis Colon, rectal polyp: Tubular adenoma; negative for high-grade dysplasia and carcinoma TODAY'S VISIT Patient is here today for follow-up and to discuss colonoscopy results. Patient denies any ill effects from the prep, anesthesia or procedure itself. Patient reports to be feeling well. Denies any GI concerning symptoms. Colonoscopy revealed 1 rectal polyp showing tubular adenoma without high-grade dysplasia or carcinoma. Diverticulosis seen in sigmoid colon. Patient denies any melena, hematochezia. Denies any upper GI symptoms like acid reflux, dyspepsia, dysphagia or odynophagia. Patient reports to be feeling well. Colonoscopy in 5 years, sooner if clinically necessary. [facility] Medical History (Updated 02/05/24 @ 20:53 [facility] Diverticulosis Tubular adenoma Insomnia Annual physical exam Surgical History History of tonsillectomy and adenoidectomy H/O: hysterectomy Family History Father Hypertension Mother Hypertension Social History Housing: House Patient Tobacco Use Status: Never used Tobacco e-Cigarette/Vaping Use: Never Used Second Hand Smoke Exposure: No service: No Current occupational status: employed Cognitive needs: No Hearing needs: No Vision needs: Yes (contacts) Review of Systems Const Denies weight gain and Denies weight loss ENT Reports no additional complaints, Denies dysphagia and Denies odynophagia Card Reports no additional complaints Resp Reports no additional complaints GI Denies abdominal pain, Denies belching, Denies melena, Denies bloating, Denies change in bowel habits, Denies dysphagia, Denies excessive flatus, Denies dyspepsia, Denies heartburn, Denies diarrhea, Denies loose stools, Denies nausea, Denies odynophagia and Denies vomiting Musc Reports no additional complaints Neuro Reports no additional complaints Psych Reports no additional complaints Endo Reports no additional complaints Physical Exam Vital Signs: Last Vital Signs Pulse 62 01/29/24 08:14 BP 112/64 01/29/24 08:14 Pulse Ox 98 01/29/24 08:14 Oxygen Delivery Method Room Air 01/29/24 08:14 BMI result Body Mass Index 28.0 Const General: healthy appearing, no acute distress and well developed Nutritional Appearance: obese Orientation/consciousness: patient oriented x3 Resp Effort & Inspection: normal respiratory effort, able to speak in complete sentences, no tracheal deviation and symmetric chest movement Auscultation: clear to auscultation bilaterally Cardio Rate: regular rate GI Inspection: Yes normal to inspection, No distended and Yes obesity Palpation (GI): Soft to palpation, not firm, nontender and No hepatosplenomegaly present Auscultation: normal bowel sounds General: Yes no CVA tenderness Back/Spine/Pelvis Back: no CVA tenderness Skin General skin exam: elasticity normal, turgor normal and dry skin Neuro General: patient oriented x3 Psych Appearance: grossly normal Mental Status: mental status grossly normal Assessment & Plan Assessment & Plan (1) Tubular adenoma: Code(s): D36.9 - Benign neoplasm, unspecified site Category: Medical (2) Diverticulosis: Code(s): K57.90 - Diverticulosis of intestine, part unspecified, without perforation or abscess without bleeding Category: Medical (3) Status post colonoscopy: Code(s): Z98.890 - Other specified postprocedural states Plan Colonoscopy in 5 years, sooner if clinically necessary. Patient had 1 tubular adenoma found in rectum without high-grade dysplasia or carcinoma. Diverticulosis found in sigmoid colon. Patient will increase fiber intake. Patient may also take [id number] fiber supplements and probiotics. Patient will follow-up in the office on as needed basis. She is agreeable to this plan and verbalizes understanding of instructions. She was given the opportunity to ask questions and all questions answered. Thank you for allowing me to participate in her care Coding Level of Care Code Est Pt Level 3 (16735) Diagnoses Tubular adenoma D36.9 Diverticulosis K57.90 Status post colonoscopy Z98.890 Time Spent (min) 25 Comment 20 minutes spent with patient and additional 15 minutes spent reviewing her records
[2024-01-29 08:14] VITALS: BP 112/64; PULSE 62; O2SAT 98; BMI 28.0
== END 2024-01-29 09:01 | disposition home or self-care (01) ==
PROVIDERS: PCP Internal Medicine; Visit Provider Nurse Practitioner Family
DX: D36.9 Benign neoplasm, unspecified site (principal); K57.90 Diverticulosis of intestine, part unspecified, without perforation or abscess without bleeding; Z98.890 Other specified postprocedural states
CPT/HCPCS: 99213

== ENCOUNTER → 2024-01-29 08:06 | Outpatient (BNVA) | payer BC, SELFPAY | PROVIDERS: PCP Internal Medicine; Visit Provider Nurse Practitioner Family ==

== ENCOUNTER 2024-01-31 07:52 | Outpatient (REF) | payer BC, SELFPAY | END 2024-01-31 07:53 | disposition home or self-care (01) | LOC: HO.MAMMO 07:52 | PROVIDERS: PCP Internal Medicine; Visit Provider Internal Medicine | DX: Z12.31 Encounter for screening mammogram for malignant neoplasm of breast (principal) | CPT/HCPCS: 77063; 77067 ==

== ENCOUNTER → 2024-01-31 08:00 | Outpatient (BNV) | payer BC, SELFPAY | PROVIDERS: PCP Internal Medicine; Visit Provider Radiology Diagnostic Radiology | DX: Z12.31 Encounter for screening mammogram for malignant neoplasm of breast (principal) | CPT/HCPCS: 77063; 77067 ==

== ENCOUNTER 2024-02-24 13:31 | Outpatient (AMB) | payer BC, SELFPAY ==
[2024-02-24 13:54] VITALS: BP 128/80; PULSE 81; O2SAT 98; BMI 28.4
--- NOTE | 2024-02-24 13:54 | MHC.PC.OV ---
Vital Signs 02/24/24 13:54 Height 5 ft 2.5 in Weight 158 lb BMI 28.4 BP 128/80 Blood Pressure Location Rt brachial Position Sitting Pulse 81 Pulse Source Pulse Oximeter Pulse Oximetry (%) 98 Oxygen Delivery Method Room Air Intake Visit Reasons: Possible hemorrhoids Intake Note: Pt is here today for a sick visit. Pt c/o jonas, itchiness and burning in her anal area. Pt states that she was treated for yeast infection last month but her test for yeast infection was negative. Allergies No Known Allergies Allergy (Verified 01/29/24 08:11) Medication List - Last Reconciled 02/24/24 by Evelina Grant MD trazodone 50 mg PO BEDTIME Tobacco use date assessed: 01/22/24 Dental Screening Dental Screen Date: 01/22/24 HPI Possible hemorrhoids HPI Details Patient presents complaining of slight vaginal itching and perirectal redness and intermittent itching for 1 month. Patient took fluconazole without significant improvement. Vaginal swab was negative for candidiasis. PFSH Medical History Diverticulosis Tubular adenoma Insomnia Annual physical exam Surgical History History of tonsillectomy and adenoidectomy H/O: hysterectomy Family History Father Hypertension Mother Hypertension Social History Housing: House Patient Tobacco Use Status: Never used Tobacco e-Cigarette/Vaping Use: Never Used Second Hand Smoke Exposure: No service: No Current occupational status: employed Cognitive needs: No Hearing needs: No Vision needs: Yes (contacts) Questionnaire PHQ-9 Over the last 2 weeks, how often have you been bothered by any of the following problems? 1. Little interest or pleasure in doing things: not at all 2. Feeling down, depressed, or hopeless: not at all 3. Trouble falling or staying asleep, or sleeping too much: not at all 4. Feeling tired or having little energy: not at all 5. Poor appetite or overeating: not at all 6. Feeling bad about yourself - or that you are a failure or have let yourself or your family down: not at all 7. Trouble concentrating on things, such as reading the newspaper or watching television: not at all 8. Moving or speaking so slowly that other people could have noticed. Or the opposite - being so fidgety or restless that you have been moving around a lot more than usual: not at all 9. Thoughts that you would be better off or of hurting yourself in some way: not at all Total score: 0 Depression Screening Interpretation: Negative Depression Screening Done: Yes Source: Developed by Drs. August Rodriguez, Marcia Vuong, Bebeto Ramos and colleagues, with an educational alex from [employer]. Thrive Questionnaire Date Thrive assessed: 02/24/24 I am a: Patient What is your living situation today?: I have a steady place to live Within the past 12 months, did the food you bought not last and you didn't have the money to get more?: Never true Within the past 12 months, did you worry whether your food would run out before you got money to buy more?: Never true Do you have trouble paying for medicines?: No Do you have trouble getting transportation to medical appointments?: No Do you have trouble paying your heating and electricity bill?: No Do you have trouble taking care of your child, family member or friend?: No Do you have trouble with day-to-day activities such as bathing, preparing meals, shopping, managing finances, etc.?: No Are you currently unemployed and looking for a job?: No Are you interested in more education?: No Please select the resources that you would like help with: None Currently or been in a relationship where the following occur: No concerns reported THRIVE Score: 0 AUDIT C Alcohol Use Questionnaire (AUDIT-C) 1. How often do you have a drink containing alcohol?: Monthly or less 2. How many drinks containing alcohol do you have on a typical day when you are drinking?: 1 or 2 3. How often do you have six or more drinks on one occasion?: Never Total Score: 1 LORENZO-7 AMB Questionnaire LORENZO-7 Date LORENZO - 7 assessed: 02/24/24 Feeling nervous, anxious, or on edge: 0 = Not at all Not being able to stop or control worryin = Not at all Worrying too much about different things: 0 = Not at all Trouble relaxin = Not at all Being so restless that it is hard to sit still: 0 = Not at all Becoming easily annoyed or irritable: 0 = Not at all Feeling afraid as if something awful might happen: 0 = Not at all Total LORENZO-7 score (0-4 normal; 5-9 mild; 10-14 moderate; 15-21 severe): 0 Source: Developed by Drs. August Rodriguez, Marcia Vuong, Bebeto Ramos and colleagues, with an educational alex from [employer]. LORENZO-7 Assessment Billing LORENZO-7 Assessment Tool: LORENZO-7 Assessment 94604 Review of Systems Const All systems reviewed & are unremarkable except as noted in HPI and below Card Reports no additional complaints Resp Reports no additional complaints GI Reports no additional complaints Physical exam (Primary Care) Vital Signs: Last Vital Signs Pulse 81 02/24/24 13:54 BP 128/80 02/24/24 13:54 Pulse Ox 98 02/24/24 13:54 Oxygen Delivery Method Room Air 02/24/24 13:54 BMI result Body Mass Index 28.4 Tobacco/Smoking Status: Tobacco use Status Tobacco use date assessed 01/22/24 02/24/24 13:54 Patient Tobacco Use Status Never used Tobacco 02/24/24 13:54 e-Cigarette/Vaping Use Never Used 02/24/24 13:54 PHQ-9: PHQ-9 Score PHQ-9: Total score 0 02/24/24 14:12 Depression Screening Interpretation: Negative Thrive Assessment: Date of Thrive Assessment Date Thrive assessed 02/24/24 02/24/24 14:12 Currently or been in a relationship where the following occur: No concerns reported Const General: no acute distress HENMT Head: Yes normal to inspection Ears: hearing grossly normal bilaterally Eyes General: appearance normal, both eyes and all related structures Neck Neck: Yes no lymphadenopathy and Yes supple Resp Effort & Inspection: normal respiratory effort Auscultation: clear to auscultation bilaterally Cardio Rhythm: regular rhythm Heart sounds: S1 normal heart sound present and S2 normal heart sound present GI Rectal Exam - Female: normal sphincter tone, No External hemorrhoid(s) present and Visual inspection abnormal (erythema, no discharge) External Female Exam: normal external appearance Speculum Exam - Vagina: normal appearance of the vagina Speculum Exam - Cervix: normal appearance of the cervix Assessment and Plan Assessment & Plan (1) Perianal erythema: Code(s): L53.8 - Other specified erythematous conditions Plan: Local skin care discussed with the patient. She was advised to use Aquaphor or petroleum jelly to protect the skin and use Tucks wipes, bacterial vaginosis panel will be checked Orders: Orders Bacterial Vaginosis Panel Today N81.9 - Female genital prolapse, unspecified, N89.8 - Other specified noninflammatory disorders of vagina Coding Level of Care Code Est Pt Level 3 (23656) Diagnoses Perianal erythema L53.8 Additional Codes LORENZO-7 Assessment Billing - LORENZO-7 Assessment Tool: LORENZO-7 Assessment 51320 ([id number])
== END 2024-02-24 15:37 | disposition home or self-care (01) ==
PROVIDERS: PCP Internal Medicine; Visit Provider Internal Medicine
DX: L53.8 Other specified erythematous conditions (principal)
CPT/HCPCS: 99213

== ENCOUNTER 2024-02-24 15:03 | Outpatient (REF) | payer BC, SELFPAY ==
[2024-02-24 17:33] LABS: Bacterial Vaginosis PCR NEGATIVE (Negative); Candida Group PCR NOT DETECTED (Not Detect); Candida glab krusei PCR NOT DETECTED (Not Detect); Trichomonas vaginalis PCR NOT DETECTED (Not Detect)
== END 2024-02-24 15:04 | disposition home or self-care (01) ==
LOC: HO.LAB 15:03
PROVIDERS: Visit Provider Internal Medicine
DX: N89.8 Other specified noninflammatory disorders of vagina (principal); N81.9 Female genital prolapse, unspecified
CPT/HCPCS: 0352U

== ENCOUNTER 2025-02-02 07:33 | Outpatient (REF) | payer BC, SELFPAY ==
--- OUTSIDE RECORDS SUMMARY | 2025-02-02 07:35 | XMS_ITS | Patient Health Record ---
[facility] Address [address] [place] [address] Care Team Providers Care Academic Intern Name Role Phone Evelina Grant MD Primary Care Provider Unavaila Evens Carlson Unavailable [phone] Allergies No Known Allergies Reason For Referral No Information Medications Medication SIG (Take, Route, Fr equency, Duration) Notes Start Date End Date Status LORazepam 0.5 MG 1 tablet at bedtime as needed Orally Once a day PRN Active traZODone HCl 50 MG 1 tablet at bedtime as needed Orally Once a day; Duration: 30 day(s) Active Naproxen 500 MG 1 tablet with food o r milk as needed Orally Twice a day Not -Taking Immunizations Vaccine Route Administration Date Status Comme nts COVID-19 Pfizer BioNTech Vaccine Unknown 05/10/2021 Administered 1st 09/17/2020 2nd 10/08/2020 Social History Tobacco Use: Social History Observation Description Date Details (start date - stop date) Never Smoker NA - NA Tobacco Use/Smoking Question Answer Notes Are you a: nonsmoker Additional Findings: Tobacco Non-User Current no n-smoker Alcohol Screen Question Answer Notes Did you have a drink contain ing alcohol in the past year? Yes How many drinks did you have on a typical day when you were drinking in the past year? 1 or 2 drinks (0 point) Points 0 Interpretation Negative Tobacco use other than smoking: Question Answer Notes Are you an other tobacco user? No Problems Problem Type SNOMED Code ICD Code Onset Dates Problem Status W/U Status Risk Notes Problem Plantar fascial fibromatosis (14136816) Plantar fascial fibromatosis (M72.2) Active confirmed Plan Of Treatment Pending Test Test Name Order Date X ray : Foot, left 3V 02/20/2022 Insurance Providers Payer Name Payer Address Payer Phone Subscriber Number Group Number Insured Name Patient Relationship to Insured Coverage Start Date Coverage End Date [facility] [address] [place] [address] [id number] Xochilt Pires Self - patient is the insured Medical (General) History Medical History History ICD Code Insomnia Broken bones covid-19 Chicken pox Surgical History Surgery Date(Month/Year) tonsillectomy Hospitalization History Reason Date(Month/Year) Child 2x
--- OUTSIDE RECORDS SUMMARY | 2025-02-02 07:35 | XMS_ITS | Clinical Summary ---
Author Organization [facility] Address [address] [place], [place] [address] Phone Care Team Providers Care Guest Experience Captain Name Role Phone Evelina Grant MD Primary Care Provider [phone] Allergies No known active allergies Medications traZODone (DESYREL) 50 MG tablet Take 50 mg by mouth nightly at bedtime. at bedtime. 02/19/2023 Active docosahexaenoic acid-epa (FISH OIL) 120-180 mg Cap Take 1,000 mg by mouth. 05/24/2023 Active Bacillus coagulans-inuli n 1 billion-250 cell-mg Cap Take 250 mg by mouth daily. Active Active Problems Problem Noted Date Diagnosed Date Plantar fascial fibromatosis 01/25/2024 Immunizations Immunization Administration Dates Next Due Influenza Quadrivalent MDCK Preservative Free IM 05/09/2022 Influenza Quadrivalent Prese rvative Free IM 04/21/2023,04/25/2021,04/09/2020,2018 Social History Tobacco Use Types Packs/Day Years Used Date Smoking Tobacco: Never Smokeless Tobacco: Never Tobacco Cessation:Counseling Given: Not Answered Education Answer Date Recorded Are you interested in more education? Not on jeanna e 03/18/2023 Are you concerned about learning? Not on file 03/18/2023 No 03/18/2023 No 03/18/2023 Digital Access Answer Date Recorded No 03/18/2023 No 03/18/2023 Reliable internet access at home? Not on file 03/18/2023 Device with a working camera? Not on file Comments Unknown Sex and Gender Information Value Date Recorded Sex Assigned at Not on file Legal Sex Female 3:48 PM EDT Gender Identity Not on file Sexual Orientation Not on file Last Filed Vital Signs Vital Sign Reading Time Taken Comments Blood Pressure 117/79 06/13/2024 2:55 PM EST Pulse 77 06/13/2024 2:55 PM EST Temperature 36.8 C (98.2 F) 06/13/2024 2:55 PM EST Respiratory Rate 16 06/13/2024 2:55 PM EST Oxygen Saturation 99% 06/13/2024 2:55 PM EST Inhaled Oxygen Concentration - - Weight 70.3 kg (155 lb) 01/25/2024 10:06 AM EDT Height 160 cm (5' 3 ) 01/25/2024 10:06 AM EDT Body Mass Index 27.46 01/25/2024 10:06 AM EDT Plan of Treatment Health Maintenance Due Date Last Done Comments Adult Td,Tdap Booster 1975 LIPID PANEL 1975 DEPRESSION SCREENING 1987 HEPATITIS C SCREENING 11/19/1993 HIV ONE-TIME SCREENING (18-65 YEARS) 11/19/1993 PAP SMEAR 11/19/1996 SCREENING FOR DIABETES 11/19/2010 MAMMOGRAM 2015 COLOGUARD 11/19/2020 COLONOSCOPY 11/19/2020 COLORECTAL CANCER SCREENING 11/19/2020 FIT TEST 11/19/2020 FOBT 11/19/2020 SIGMOIDOSCOPY 11/19/2020 VIRTUAL COLONOSCOPY 11/19/2020 COVID-19 VACCINE Completed 04/05/2024, , 06/18/2022, Additional history exists SMOKING STATUS SCREENING (Once After 26 Yrs) Completed 06/13/2024 HEPATITIS A VACCINES Aged Out No long er eligible based on patient's age to complete this topic HIB VACCINES Aged Out No longer eligi ble based on patient's age to complete this topic MENINGOCOCCAL VACCINES (ACWY) Aged Out No longer eligible based on patient's age to complete this topic MENINGOCOCCAL VACCINES (B) Aged Out N o longer eligible based on patient's age to complete this topic PNEUMOCOCCAL VACCINES (0-49 years) Aged Out No longer eligible based on patient's age to complete this topic Medical Devices Not on file Insurance [place] [address] [place] [address] [place] [address] [place] [address] [place] [address] Care Teams Guest Experience Captain Relationship Specialty Start Date End Date Evelina Grant MD [address] [facility] [place] [address] PCP - General Internal Medicine 03/18/23 Additional Source Comments The information contained in this document represents components of the legal health record. It is not the complete legal health record.[facility]
== END 2025-02-02 07:34 | disposition home or self-care (01) ==
LOC: HO.MAMMO 07:33
PROVIDERS: PCP Internal Medicine; Visit Provider Internal Medicine
DX: Z12.31 Encounter for screening mammogram for malignant neoplasm of breast (principal)
CPT/HCPCS: 77063; 77067

== ENCOUNTER → 2025-02-02 07:45 | Outpatient (BNV) | payer BC, SELFPAY | PROVIDERS: PCP Internal Medicine; Visit Provider Internal Medicine | DX: Z12.31 Encounter for screening mammogram for malignant neoplasm of breast (principal) | CPT/HCPCS: 77063; 77067 ==

== ENCOUNTER 2025-02-03 07:44 | Outpatient (REF) | payer BC, SELFPAY ==
--- OUTSIDE RECORDS SUMMARY | 2025-02-03 07:47 | XMS_ITS | Clinical Summary ---
Author Organization [facility] Address [address] [place], [place] [address] Phone Care Team Providers Care Impregnating Tank Operator Name Role Phone Evelina Grant MD Primary Care Provider [phone] Allergies No known active allergies Medications traZODone [...] topic Medical Devices Not on [place] [address] [place] [address] [place] [address] [place] [address] [place] [address] [place] [address] Care Teams Impregnating Tank Operator Relationship Specialty Start Date End Date Evelina Grant MD [address] [place] [address] PCP - General Internal Medicine 03/18/23 Additional Source Comments The information contained in this document represents components of the legal health record. It is not the complete legal health record.[facility]
--- OUTSIDE RECORDS SUMMARY | 2025-02-03 07:48 | XMS_ITS | Patient Health Record ---
[facility] Address [address] [place] [address] Care Team Providers Care Coil Winding Supervisor Name Role Phone Evelina Grant MD Primary Care Provider Unavaila Evens Carlson Unavailable [phone] Allergies No Known Allergies Reason For Referral [...] Status Risk Notes Problem Plantar fascial fibromatosis (37722421) Plantar fascial fibromatosis (M72.2) Active confirmed Plan Of Treatment Pending Test Test Name Order Date X ray : Foot, left 3V 02/20/2022 Insurance Providers Payer Name Payer Address Payer Phone Subscriber Number Group Number Insured Name Patient Relationship to Insured Coverage Start Date Coverage End Date [facility] [address] [place] [address] [id number] Xochilt Pires Self - patient is the insured Medical (General) History Medical History History ICD Code Insomnia Broken bones covid-19 Chicken pox Surgical History Surgery Date(Month/Year) tonsillectomy Hospitalization History Reason Date(Month/Year) Child 2x
[2025-02-03 11:12] LABS: MANUAL DIFF FLAG NO
[2025-02-03 11:14] LABS: Appearance Urine Clear; Glucose Urine UA Negative (Negative); PH 7.5 (5.0-9.0); Specific Gravity - Urine 1.015 (1.005-1.025); UMIC TRIGGER UA YES
[2025-02-03 11:36] LABS: Hematocrit 39.9 % (37.0-47.0); Hemoglobin 13.6 g/dl (12.0-16.0); Imm Gran Abs Auto 0.02 X10*3/uL (0.00-0.03); Imm Gran Pct Auto 0.4 % (0.0-0.4); Lymphocytes Absolute Auto 2.0 X10*3/uL (1.2-4.9); Mean Corpuscular HGB Conc 34.1 g/dl (31.0-35.0); Mean Corpuscular Hemoglobin 32.0 pg (27.0-33.0); Mean Corpuscular Volume 93.9 fL (80.0-98.0); NRBC Abs Auto 0.000 X10*3/uL (0.0-0.012); NRBC Pct Auto 0.0 /100WBC (0.0-0.2); Platelet Count 297 X10*3/uL (160-400); Red Blood Count 4.25 X10*6/uL (4.20-5.50); White Blood Count 5.2 X10*3/uL (4.8-10.8)
[2025-02-03 12:17] LABS: Alanine Aminotransferase 16 U/L (0-31); Albumin Level 4.6 g/dL (3.5-5.0); Alkaline Phosphatase 64 U/L (39-117); Anion Gap 12 (12-20); Aspartate Amino Transferase 23 U/L (5-31); Blood Urea Nitrogen 11 mg/dL (9-16); Calcium 9.2 mg/dL (8.4-10.2); Carbon Dioxide 28 mmol/L (22-29); Chloride 106 mmol/L (96-108); Cholesterol 255 mg/dL (<200); Estimated Glomerular Filt Rate > 60; HDL Cholesterol 58 mg/dL (>40); Potassium 3.8 mmol/L (3.3-5.1); Sodium 142 mmol/L (135-145); Total Protein 7.6 g/dL (6.5-8.0); Triglycerides 146 mg/dL (<150)
== END 2025-02-03 07:45 | disposition home or self-care (01) ==
LOC: HO.WFDLDS 07:44
PROVIDERS: Visit Provider Internal Medicine
DX: Z00.00 Encounter for general adult medical examination without abnormal findings (principal); E78.5 Hyperlipidemia, unspecified
CPT/HCPCS: 36415; 80053; 80061; 81001; 82306; 84443; 85025

== ENCOUNTER 2025-02-08 12:14 | Outpatient (AMB) | payer BC, SELFPAY ==
--- NOTE | 2025-02-08 12:17 | A.OFFPC_ITS ---
Vital Signs 02/08/25 12:19 Height 5 ft 2.5 in Weight 161 lb BMI 29.0 BP 122/80 Blood Pressure Location Lt brachial Position Sitting Pulse 60 Pulse Source Pulse Oximeter Pulse Oximetry (%) 100 Oxygen Delivery Method Room Air Intake Visit Reasons: PE Farm Machinery Mechanic Required: No Allergies No Known Allergies Allergy (Verified 02/08/25 12:19) Medication List - Last Reconciled 02/08/25 by Evelina Grant MD estradiol 0.5 mg PO DAILY 30 days trazodone 50 mg PO BEDTIME Tobacco use date assessed: 02/08/25 Dental Screening Dental Screen Date: 02/08/25 Did you have a dental visit in the last 12 months?: Yes Did you have a dental problem in the last 6 months where you did not have access to dental care?: No Was dental information given to patient?: Patient has dentist HPI PE HPI Details Pt presents for PE. Pt c/o worsening insomnia and anxiety because of hot flashes for 2 months. She had hysterectomy for a uterus prolapse. Patient is interested in hormonal replacement therapy PFSH Medical History (Updated 02/08/25 @ 13:12 by Evelina Grant MD) Vaginal vault prolapse Diverticulosis Tubular adenoma Insomnia Annual physical exam Surgical History (Updated 02/08/25 @ 13:01 by Evelina Grant MD) Hx of colonoscopy History of tonsillectomy and adenoidectomy H/O: hysterectomy Family History Father Hypertension Mother Hypertension Social History Housing: House Patient Tobacco Use Status: Never used Tobacco e-Cigarette/Vaping Use: Never Used Second Hand Smoke Exposure: No service: No Current occupational status: employed Cognitive needs: No Hearing needs: No Vision needs: Yes (contacts) Questionnaire PHQ-9 Over the last 2 weeks, how often have you been bothered by any of the following problems? 1. Little interest or pleasure in doing things: not at all 2. Feeling down, depressed, or hopeless: not at all 3. Trouble falling or staying asleep, or sleeping too much: more than half the days 4. Feeling tired or having little energy: not at all 5. Poor appetite or overeating: not at all 6. Feeling bad about yourself - or that you are a failure or have let yourself or your family down: not at all 7. Trouble concentrating on things, such as reading the newspaper or watching television: not at all 8. Moving or speaking so slowly that other people could have noticed. Or the opposite - being so fidgety or restless that you have been moving around a lot more than usual: not at all 9. Thoughts that you would be better off or of hurting yourself in some way: not at all Total score: 2 Depression Screening Interpretation: Negative Depression Screening Done: Yes 06148 - PHQ-9 Billing: Yes Source: Developed by Drs. August Rodriguez, Marcia Vuong, Bebeto Ramos and colleagues, with an educational alex from [employer]. Thrive Questionnaire Date Thrive assessed: 02/08/25 I am a: Patient What is your living situation today?: I have a steady place to live Within the past 12 months, did the food you bought not last and you didn't have the money to get more?: Never true Within the past 12 months, did you worry whether your food would run out before you got money to buy more?: Never true Do you have trouble paying for medicines?: No Do you have trouble getting transportation to medical appointments?: No Do you have trouble paying your heating and electricity bill?: No Do you have trouble taking care of your child, family member or friend?: No Do you have trouble with day-to-day activities such as bathing, preparing meals, shopping, managing finances, etc.?: No Are you currently unemployed and looking for a job?: No Are you interested in more education?: No Please select the resources that you would like help with: None Currently or been in a relationship where the following occur: No concerns reported THRIVE Score: 0 AUDIT C Alcohol Use Questionnaire (AUDIT-C) 1. How often do you have a drink containing alcohol?: 2-4 times a month 2. How many drinks containing alcohol do you have on a typical day when you are drinking?: 1 or 2 3. How often do you have six or more drinks on one occasion?: Never Total Score: 2 Score Reviewed/Action Taken: Yes LORENZO-7 AMB Questionnaire LORENZO-7 Date LORENZO - 7 assessed: 02/08/25 Feeling nervous, anxious, or on edge: 0 = Not at all Not being able to stop or control worryin = Not at all Worrying too much about different things: 1 = Several days Trouble relaxin = Not at all Being so restless that it is hard to sit still: 0 = Not at all Becoming easily annoyed or irritable: 1 = Several days Feeling afraid as if something awful might happen: 0 = Not at all Total LORENZO-7 score (0-4 normal; 5-9 mild; 10-14 moderate; 15-21 severe): 2 Source: Developed by Drs. August Rodriguez, Marcia Vuong, Bebeto Ramos and colleagues, with an educational alex from [employer]. LORENZO-7 Assessment Billing LORENZO-7 Assessment Tool: LORENZO-7 Assessment 19635 Review of Systems Const All systems reviewed & are unremarkable except as noted in HPI and below Eyes Reports no additional complaints ENT Reports no additional complaints Card Reports no additional complaints Resp Reports no additional complaints GI Reports no additional complaints Reports no additional complaints Physical exam (Primary Care) Vital Signs: Last Vital Signs Pulse 60 02/08/25 12:19 BP 122/80 02/08/25 12:19 Pulse Ox 100 02/08/25 12:19 Oxygen Delivery Method Room Air 02/08/25 12:19 BMI result Body Mass Index 29.0 Tobacco/Smoking Status: Tobacco use Status Tobacco use date assessed 02/08/25 02/08/25 12:22 Patient Tobacco Use Status Never used Tobacco 02/08/25 12:18 e-Cigarette/Vaping Use Never Used 02/08/25 12:18 PHQ-9: PHQ-9 Score PHQ-9: Total score 2 02/08/25 12:22 Depression Screening Interpretation: Negative Thrive Assessment: Date of Thrive Assessment Date Thrive assessed 02/08/25 02/08/25 12:22 Currently or been in a relationship where the following occur: No concerns reported Const General: no acute distress HENMT Head: Yes normal to inspection Face and sinus: Yes normal facial exam Mouth: Normal oral and palatal mucosa present Throat: Yes posterior oropharynx normal Eyes General: appearance normal, both eyes and all related structures Neck Neck: Yes no lymphadenopathy and Yes supple Resp Effort & Inspection: normal respiratory effort Auscultation: clear to auscultation bilaterally Cardio Rhythm: regular rhythm Heart sounds: S1 normal heart sound present and S2 normal heart sound present GI Inspection: Yes normal to inspection Palpation (GI): Soft to palpation Percussion: Yes normal to percussion Auscultation: normal bowel sounds Coding Level of Care Code Est Pt Prev Care 40-64y(41617) Diagnoses Annual physical exam Z00.00 Hyperlipidemia E78.5 Menopause Z78.0 Additional Codes LORENZO-7 Assessment Billing - LORENZO-7 Assessment Tool: LORENZO-7 Assessment 24684 ([id number]) PHQ-9 - 68743 - PHQ-9 Billing: Yes ([id number]) Assessment & Plan Assessment & Plan (1) Annual physical exam: Code(s): Z00.00 - Encounter for general adult medical examination without abnormal findings Category: Medical Plan: Well-balanced diet regular physical activity discussed with the patient. She is up-to-date with the mammogram had colonoscopy in 2023. (2) Hyperlipidemia: Code(s): E78.5 - Hyperlipidemia, unspecified Category: Medical Plan: Low-cholesterol diet increase exercise discussed with the patient repeat lipid profile in 3 months (3) Menopause: Code(s): Z78.0 - Asymptomatic menopausal state Category: Medical Plan: Lifestyle changes discussed with the patient. She is interested in hormonal replacement therapy estradiol 0.5 mg daily will be prescribed and the dose will be adjusted PRN follow-up in 3 months Orders: Orders Lipid Panel 3 Months E78.5 - Hyperlipidemia, unspecified Medications: New estradiol 0.5 mg PO DAILY 30 tabs 2RF 30 days
[2025-02-08 12:19] VITALS: BP 122/80; PULSE 60; O2SAT 100; BMI 29.0
--- OUTSIDE RECORDS SUMMARY | 2025-02-08 12:51 | XMS_ITS | Clinical Summary ---
Author Organization [facility] Address [address] [place], [place] [address] Phone Care Team Providers Care Mobile Application Development Lead Name Role Phone Evelina Grant MD Primary Care Provider [phone] Allergies No known active allergies Medications traZODone [...] topic Medical Devices Not on file [place] [address] [address] [place] [address] [place] [address] [place] [address] [place] [address] Care Teams Mobile Application Development Lead Relationship Specialty Start Date End Date Evelina Grant MD [address] [facility] [place] [address] PCP - General Internal Medicine 03/18/23 Additional Source Comments The information contained in this document represents components of the legal health record. It is not the complete legal health record.[facility]
--- OUTSIDE RECORDS SUMMARY | 2025-02-08 12:52 | XMS_ITS | Patient Health Record ---
[facility] Address [address] [place] [address] Care Team Providers Care Lead Shop Operator Name Role Phone Evelina Grant MD Primary Care Provider Unavaila Evens Carlson Unavailable [phone] Allergies No Known Allergies Reason For Referral [...] Status Risk Notes Problem Plantar fascial fibromatosis (43049767) Plantar fascial fibromatosis (M72.2) Active confirmed Plan Of Treatment Pending Test Test Name Order Date X ray : Foot, left 3V 02/20/2022 Insurance Providers Payer Name Payer Address Payer Phone Subscriber Number Group Number Insured Name Patient Relationship to Insured Coverage Start Date Coverage End Date [facility] [address] [place] [address] [phone] [id number] Xochilt Pires Self - patient is the insured Medical (General) History Medical History History ICD Code Insomnia Broken bones covid-19 Chicken pox Surgical History Surgery Date(Month/Year) tonsillectomy Hospitalization History Reason Date(Month/Year) Child 2x
== END 2025-02-08 13:09 | disposition home or self-care (01) ==
LOC: HO.HMCC 12:14
PROVIDERS: PCP Internal Medicine; Visit Provider Internal Medicine
DX: Z00.00 Encounter for general adult medical examination without abnormal findings (principal); E78.5 Hyperlipidemia, unspecified; Z78.0 Asymptomatic menopausal state

== ENCOUNTER → 2025-02-08 12:14 | Outpatient (BNVA) | payer BC, SELFPAY | PROVIDERS: PCP Internal Medicine; Visit Provider Internal Medicine | DX: Z00.00 Encounter for general adult medical examination without abnormal findings (principal); E78.5 Hyperlipidemia, unspecified; Z78.0 Asymptomatic menopausal state; Z13.31 Encounter for screening for depression; Z13.39 Encounter for screening examination for other mental health and behavioral disorders | CPT/HCPCS: 96127 ==

== ENCOUNTER 2025-05-18 07:43 | Outpatient (REF) | payer BC, SELFPAY ==
--- OUTSIDE RECORDS SUMMARY | 2025-05-18 07:45 | XMS_ITS | Clinical Summary ---
Author Organization [facility] Address [address] [place], [place] [id number] Phone Care Team Providers Care Medical Office Manager Name Role Phone Evelina Grant MD Primary Care Provider [phone] Allergies No known active allergies Medications traZODone [...] FOBT 11/19/2020 SIGMOIDOSCOPY 11/19/2020 VIRTUAL COLONOSCOPY 11/19/2020 INFLUENZA VACCINE (#1) 2025 , 04/21/2023, 05/09/2022, Additional history exists COVID-19 VACCINE (2024- season) 2025 04/05/2024, 04/21/2023, 06/18/2022, Additional history exists SMOKING STATUS SCREENING (Once After 26 Yrs) Completed 06/13/2024 HEPATITIS A VACCINES Aged Out No long er eligible based on patient's age to complete this topic HIB VACCINES Aged Out No longer eligi ble based on patient's age to complete this topic IPV VACCINES Aged Out No longer eligi ble [...] topic Medical Devices Not on file [place] [address] [place] [address] [place] [address] [place] [address] [place] [address] Care Teams Medical Office Manager Relationship Specialty Start Date End Date Evelina Grant MD [address] [place] [address] PCP - General Internal Medicine 03/18/23 Additional Source Comments The information contained in this document represents components of the legal health record. It is not the complete legal health record.[facility]
--- OUTSIDE RECORDS SUMMARY | 2025-05-18 07:46 | XMS_ITS | Patient Health Record ---
Author Organization [facility] [place] Address [address] [place] [address] Care Team Providers Care Focus Puller Name Role Phone Evelina Grant MD Primary Care Provider Unavaila Evens Carlson Unavailable [phone] Allergies No Known Allergies Reason For Referral [...] Status Risk Notes Problem Plantar fascial fibromatosis ([id number]) Plantar fascial fibromatosis (M72.2) Active confirmed Plan Of Treatment Pending Test Test Name Order Date X ray : Foot, left 3V 02/20/2022 Insurance Providers Payer Name Payer Address Payer Phone Subscriber Number Group Number Insured Name Patient Relationship to Insured Coverage Start Date Coverage End Date [facility] [address] [place] [address] [phone] [id number] Xochilt Pires Self - patient is the insured Medical (General) History Medical History History ICD Code Insomnia Broken bones covid-19 Chicken pox Surgical History Surgery Date(Month/Year) tonsillectomy Hospitalization History Reason Date(Month/Year) Child 2x
[2025-05-18 11:42] LABS: Cholesterol 244 mg/dL (<200); HDL Cholesterol 55 mg/dL (>40); Triglycerides 91 mg/dL (<150)
== END 2025-05-18 07:44 | disposition home or self-care (01) ==
LOC: HO.WFDLDS 07:43
PROVIDERS: Visit Provider Internal Medicine
DX: E78.5 Hyperlipidemia, unspecified (principal)
CPT/HCPCS: 36415; 80061

== ENCOUNTER 2025-05-27 13:34 | Outpatient (AMB) | payer BC, SELFPAY ==
--- NOTE | 2025-05-27 13:40 | A.OFFPC_ITS ---
Vital Signs 05/27/25 13:41 Height 5 ft 2.5 in Weight 162 lb BMI 29.2 BP 120/74 Blood Pressure Location Lt brachial Position Sitting Pulse 73 Pulse Source Pulse Oximeter Pulse Oximetry (%) 98 Intake Visit Reasons: Reschedule 3 months f/up Allergies No Known Allergies Allergy (Verified 05/27/25 13:43) Medication List - Last Reconciled 05/27/25 by Evelina Grant MD estradiol 0.5 mg PO DAILY 90 days pravastatin 20 mg PO DAILY trazodone 50 mg PO BEDTIME Tobacco use date assessed: 02/08/25 Dental Screening Dental Screen Date: 02/08/25 HPI Reschedule 3 months f/up HPI Details Patient presents for the follow-up of hyperlipidemia. She has been trying to exercise regularly and following a low-cholesterol diet and taking fish oil supplement, [facility] Medical History Vaginal vault prolapse Diverticulosis Tubular adenoma Insomnia Annual physical exam Surgical History Hx of colonoscopy History of tonsillectomy and adenoidectomy H/O: hysterectomy Family History Father Hypertension Mother Hypertension Social History Housing: House Patient Tobacco Use Status: Never used Tobacco e-Cigarette/Vaping Use: Never Used Second Hand Smoke Exposure: No service: No Current occupational status: employed Cognitive needs: No Hearing needs: No Vision needs: Yes (contacts) Questionnaire Thrive Questionnaire Date Thrive assessed: 02/01/25 I am a: Patient What is your living situation today?: I have a steady place to live Within the past 12 months, did the food you bought not last and you didn't have the money to get more?: Never true Within the past 12 months, did you worry whether your food would run out before you got money to buy more?: Never true Do you have trouble paying for medicines?: No Do you have trouble getting transportation to medical appointments?: No Do you have trouble paying your heating and electricity bill?: No Do you have trouble taking care of your child, family member or friend?: No Do you have trouble with day-to-day activities such as bathing, preparing meals, shopping, managing finances, etc.?: No Are you currently unemployed and looking for a job?: No Are you interested in more education?: No Please select the resources that you would like help with: None Currently or been in a relationship where the following occur: No concerns reported THRIVE Score: 0 LORENZO-7 AMB Questionnaire LORENZO-7 Date LORENZO - 7 assessed: 02/08/25 Source: Developed by Drs. August Rodriguez, Marcia Vuong, Bebeto Ramos and colleagues, with an educational alex from [employer]. Review of Systems Const All systems reviewed & are unremarkable except as noted in HPI and below Eyes Reports no additional complaints ENT Reports no additional complaints Card Reports no additional complaints Resp Reports no additional complaints GI Reports no additional complaints Physical exam (Primary Care) Vital Signs: Last Vital Signs Pulse 73 05/27/25 13:41 BP 120/74 05/27/25 13:41 Pulse Ox 98 05/27/25 13:41 BMI result Body Mass Index 29.2 Tobacco/Smoking Status: Tobacco use Status Tobacco use date assessed 02/08/25 05/27/25 13:42 Patient Tobacco Use Status Never used Tobacco 05/27/25 13:42 e-Cigarette/Vaping Use Never Used 05/27/25 13:42 Thrive Assessment: Date of Thrive Assessment Date Thrive assessed 02/01/25 05/27/25 13:42 Currently or been in a relationship where the following occur: No concerns reported Const General: no acute distress HENMT Head: Yes normal to inspection Mouth: Normal oral and palatal mucosa present Neck Neck: Yes supple Resp Effort & Inspection: normal respiratory effort Auscultation: clear to auscultation bilaterally Cardio Rhythm: regular rhythm Heart sounds: S1 normal heart sound present and S2 normal heart sound present GI Inspection: Yes normal to inspection Coding Level of Care Code Est Pt Level 3 (02730) Diagnoses Hyperlipidemia E78.5 Assessment & Plan Assessment & Plan (1) Hyperlipidemia: Code(s): E78.5 - Hyperlipidemia, unspecified Category: Medical Plan: Start pravastatin 20 mg daily. Continue low-cholesterol diet regular exercise check lipid profile in 2 months Orders: Orders Lipid Panel 2 Months E78.5 - Hyperlipidemia, unspecified LDL Cholesterol Direct 2 Months E78.5 - Hyperlipidemia, unspecified Comprehensive [place]. Panel Fast 9 Months E78.5 - Hyperlipidemia, unspecified, Z00.00 - Encounter for general adult medical examination without abnormal findings LDL Cholesterol Direct 9 Months E78.5 - Hyperlipidemia, unspecified, Z00.00 - Encounter for general adult medical examination without abnormal findings Comprehensive [place]. Panel Fast 2 Months E78.5 - Hyperlipidemia, unspecified Lipid Panel 9 Months E78.5 - Hyperlipidemia, unspecified, Z00.00 - Encounter for general adult medical examination without abnormal findings Complete Blood Count Auto Diff 9 Months E78.5 - Hyperlipidemia, unspecified, Z00.00 - Encounter for general adult medical examination without abnormal findings TSH reflex Free T4 9 Months E78.5 - Hyperlipidemia, unspecified, Z00.00 - Encou nter for general adult medical examination without abnormal findings UA w Microscopic 9 Months E78.5 - Hyperlipidemia, unspecified, Z00.00 - Encounter for general adult medical examination without abnormal findings Medications: New pravastatin 20 mg PO DAILY 90 tabs 3RF pravastatin 20 mg PO DAILY 90 tabs 1RF
[2025-05-27 13:41] VITALS: BP 120/74; PULSE 73; O2SAT 98; BMI 29.2
--- OUTSIDE RECORDS SUMMARY | 2025-05-27 19:00 | XMS_ITS | Patient Health Record ---
[facility] Address [address] [place] [address] Care Team Providers Care Meat Manager Name Role Phone Evelina Grant MD Primary Care Provider Unavaila Evens Carlson Unavailable [phone] Allergies No Known Allergies Reason For Referral [...] Status Risk Notes Problem Plantar fascial fibromatosis ([id number]) Plantar fascial fibromatosis (M72.2) Active confirmed Plan Of Treatment Pending Test Test Name Order Date X ray : Foot, left 3V 02/20/2022 Insurance Providers Payer Name Payer Address Payer Phone Subscriber Number Group Number Insured Name Patient Relationship to Insured Coverage Start Date Coverage End Date [facility] [address] [place] [address] [id number] Xochilt Pires Self - patient is the insured Medical (General) History Medical History History ICD Code Insomnia Broken bones covid-19 Chicken pox Surgical History Surgery Date(Month/Year) tonsillectomy Hospitalization History Reason Date(Month/Year) Child 2x
== END 2025-05-27 14:49 | disposition home or self-care (01) ==
LOC: HO.HMCC 13:34
PROVIDERS: PCP Internal Medicine; Visit Provider Internal Medicine
DX: E78.5 Hyperlipidemia, unspecified (principal)